=== PATIENT | female | born 1995 | race Caucasian/White ===

== ENCOUNTER → 2019-09-05 15:37 | Outpatient (BNVA) | payer BC, SELFPAY | PROVIDERS: PCP Nurse Practitioner Family; Visit Provider Nurse Practitioner Family | DX: Z23 Encounter for immunization (principal) | CPT/HCPCS: 81025 ==

== ENCOUNTER → 2022-09-10 09:58 | Outpatient (BNVA) | payer BC, SELFPAY | PROVIDERS: PCP Nurse Practitioner Family; Visit Provider Nurse Practitioner Family | DX: N93.9 Abnormal uterine and vaginal bleeding, unspecified (principal); N89.8 Other specified noninflammatory disorders of vagina | CPT/HCPCS: 84439; 84443; 84481; 85025; 87070; 87205; 88175 ==

== ENCOUNTER 2022-09-29 14:37 | Outpatient (CLI) | payer BC, SELFPAY ==
--- NOTE | 2022-09-29 15:15 | US_ITS ---
WS: [id number] TRANSABDOMINAL PELVIC AND TRANSVAGINAL PELVIC ULTRASOUND HISTORY: N93.9 - Abnormal uterine and vaginal bleeding, unspecified COMPARISON: None available. Uterus: 9.6 cm x 6.8 cm x 5.6 cm. Uterus is mildly enlarged and anteverted. Heterogeneous appearance to the myometrium and the junctional zone. Endometrium: 3.2 cm. Abnormal endometrium. There is mixed heterogeneity within the endometrium with l oss of the normal junctional zone. No shadowing which would typically be seen with fibroids. Right ovary: 4.0 cm x 1.9 cm x 2.2 cm. Normal size. No solid mass. No increased vascularity. As submu cosal fibroid. Left ovary: Not visualized. No adnexal mass. Free fluid: No free fluid. US/US pelv w/transvag [id number] IMPRESSION: 1. Technically difficult examination. 2. Enlarged uterus. 3. Abnormal endometrium. Endometrium is heterogeneous measuring 3.2 cm. Loss o f the normal junctional zone. Endometrial biopsy is recommended. Differential i ncludes endometrial neoplasm, adenomyosis and submucosal fibroid.
[2022-09-29 18:28] LABS: Iron 51 ug/dL (37-145); Total Iron Binding Capacity 362 mcg/dl; Unsaturated Iron Binding 311 ug/dL (112-347); Vitamin B12 285 pg/mL (232-1245)
== END 2022-09-29 14:38 | disposition home or self-care (01) ==
PROVIDERS: PCP Nurse Practitioner Family; Visit Provider Nurse Practitioner Family
DX: N93.9 Abnormal uterine and vaginal bleeding, unspecified (principal); D64.9 Anemia, unspecified
CPT/HCPCS: 36415; 76830; 76856; 82607; 83540; 83550

== ENCOUNTER → 2022-11-13 10:04 | Outpatient (BNVA) | payer BC, SELFPAY | PROVIDERS: PCP Nurse Practitioner Family; Visit Provider Nurse Practitioner Family | DX: J02.9 Acute pharyngitis, unspecified (principal) | CPT/HCPCS: 87880 ==

== ENCOUNTER → 2025-01-17 19:10 | Outpatient (BNVA) | payer BC, SELFPAY | PROVIDERS: PCP Nurse Practitioner Family; Visit Provider Registered Nurse Neonatal Intensive Care | DX: R50.9 Fever, unspecified (principal) | CPT/HCPCS: 87400; 87426 ==

== ENCOUNTER 2025-01-19 09:18 | Inpatient (IN) | payer BC, SELFPAY ==
[2025-01-19] VITALS (7 sets, daily range): BP systolic 129–164; BP diastolic 60–84; PULSE 98–112; RESP 17; TEMP 36.9–37.1; O2SAT 95–99; BMI 52.4; BMI 51.5
--- OUTSIDE RECORDS SUMMARY | 2025-01-19 09:28 | XMS_ITS | Encounter Summary ---
Author Organization [facility] Address [address] [place] [address] Care Team Providers Care Chancery Clerk Name Role Phone Carissa Jimenes MD Primary Care Provider [phone] Encounter Details Date Type Department Care Team (Latest Contact Info) Description 09/11/2004 Outpatient Historical [facility] Family Medicine- [address] [place] [address] Rosario Hirsch, BRITTNEY NO ADDRESS ON FILE STREP SORE THROAT (Primary Dx); OTITIS MEDIA NOS; MORBID OBESITY (CMS/HCC) Social History Tobacco Use Types Packs/Day Years Used Date Smoking Tobacco: Never Assessed Comments Unknown Sex and Gender Information Value Date Recorded Sex Assigned at Not on file 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
--- OUTSIDE RECORDS SUMMARY | 2025-01-19 09:28 | XMS_ITS | Clinical Summary ---
Author Organization [facility] Address [address] [place] [address] Care Team Providers Care Campaign Director Name Role Phone Carissa Jimenes MD Primary Care Provider Allergies No known active allergies Medications Blood-Glucose Meter (ONE TOUCH ULTRA 2) [facility] Kit Dx. 250.0 1 Kit 0 2 Active lancets (ONE TOUCH ULTRASOFT LANCETS) [facility] Each 2 2 Active Echinacea 200 mg Oral Cap Take 1 Tab by mouth daily. Active multivitamin (DAILY-ANA) Oral tablet Take 1 Tab by mouth daily. Active antipyrine-jennifer ocaine (AURODEX) 5.4-1.4 % OT Drop Administer 5 Drops in left ear every 4 hours. 10 mL 1 3 Active blood sugar diagnostic (CONTOUR NEXT STRIPS) Strip Use to test sugar one time daily DX:E11.9. 50 Strip 4 7 Active metFORMIN (GLUCOPHAGE) 1,000 mg tablet TAKE ONE TABLET BY MOUTH TWICE DAILY WITH MEALS 60 Tablet 3 7 Active nystatin-triamc inolone (MYCOLOG-II) 100,000-0.1 unit/g-% Cream Apply to affected area 2 times daily. 60 Gram 2 7 Active metFORMIN (GLUCOPHAGE) 500 mg tabletIndicatio ns:Diabetes mellitus due to underlying condition without complication, without long-term current use of insulin (CMS/HCC) TAKE ONE TABLET BY MOUTH ONCE DAILY WITH BREAKFAST 30 Tablet 3 7 Active Active Problems Problem Noted Date Diagnosed Date Childhood obesity 11/27/2008 DM (diabetes mellitus) 11/27/2008 Overview (09/03/2012): A1C: 8.2 (06/07); 12.5 (12/02) Immunizations Immunization Administration Dates Next Due (M-M-R II/PRIORIX)(12 MO UP) MEASLES, MUMPS AND RUBELLA VIRUS VACCINE, 0.5 ML IM/SUBCUT 01/16/1999,02/17/1995 Dt Dtp Dtap Vaccine 01/16/1999, 5,08/11/1994,1993,01/06/1994 HIB, Unspecified Formulation 02/17/1995, 08/11/1994,05/12/1994,1993 Hepatitis A Vaccine 02/18/2006 Hepatitis B Vaccine 02/17/1996,02/17/1995,1993 IPV/OPV 08/11/1994,05/12/1994,01/06/1994 Influenza Seasonal Unspecifi ed Formulation IM 04/26/2012,07/04/2003 Social History Tobacco Use Types Packs/Day Years Used Date Smoking Tobacco: Never Smokeless Tobacco: Never Alcohol Use Standard Drinks/Week Comments No 0 (1 standard drink = 0.6 oz pur e alcohol) Comments No Sex and Gender Information Value Date Recorded Sex Assigned at Not on file Legal Sex Female 5:50 AM RECONCILER Gender Identity Not on file Sexual Orientation Not on file Last Filed Vital Signs Vital Sign Reading Time Taken Comments Blood Pressure 130/89 11/12/2016 11:10 AM CDT Pulse 104 11/12/2016 11:10 AM CDT Temperature 36.9 C (98.5 F) 11/12/2016 11:10 AM CDT Respiratory Rate 20 11/12/2016 11:10 AM CDT Oxygen Saturation 98% 11/12/2016 11:10 AM CDT Inhaled Oxygen Concentration - - Weight 151.7 kg (334 lb 8 oz) 11/12/2016 11:10 A M CDT Height 168.9 cm (5' 6.5 ) 11/12/2016 11:10 AM CD T Body Mass Index 53.18 11/12/2016 11:10 AM CDT Plan of Treatment Health Maintenance Due Date Last Done Comments DTAP/TDAP/TD VACCINES (6 - Tdap) 2004 01/16/1999, 02/17/1995, 08/11/1994, Additional history exists DIABETES MICROALBUMIN ANNUAL SCREEN 02/15/2013 02/16/2012 DIABETES ANNUAL RETINAL EXAM 03/03/2017 03/03/2016, 09/18/2014 DIABETES HBA1C Q 6 MONTHS 05/08/20172016, 10/01/2012, 05/27/2012, Additional history exists HPV/Cotest (21-29) 10/19/2017 10/19/2012 LDL CHOLESTEROL ANNUAL 11/06/2017 7, 06/07/2015, 03/02/2010, Additional history exists DIABETES ANNUAL FOOT EXAM 11/12/2017 11/12/2016 CERVICAL CANCER SCREENING 10/29/2023 HPV/Cotest (30-65) 10/29/2023 10/19/2012 PAP SMEAR 10/29/2023 10/19/2012 INFLUENZA VACCINE (#1) 2024 04/26/2012, 2002 Preventative Visit- Commercial 07/27/2024 HEPATITIS B VACCINES Completed 02/17/1996, 02/17/1995, 1993 HPV VACCINES Aged Out No longer eligi ble based on patient's age to complete this topic Procedures Procedure Name Priority Date/Time Associated Diagnosis Comments LIPID PANEL Routine 11/06/2016 HM DIABETES EYE EXAM Routine 03/03/2016 CERV/VAG CYTOPATH, THIN PREP IMAGR RFLX HPV Routine 10/19/2012 9:06 AM CDT HEMOGLOBIN A1C Routine 10/01/2012 10:36 AM RECONCILER DM w/o Complication Type II, Uncontrolled, Dx'd 12/02 MICROALBUMIN/CREATI NINE RATIO, RANDOM UR Routine 02/16/2012 11:08 AM CDT DM w/o complication type II (CMS/HCC) from Last 3 Months or Most Recently Relevant to Health Maintenance Results * LIPID PANEL (11/06/2016) ABSTRACTED CHOLESTEROL 196 EXTERNAL LAB ABSTRACTED TRIGLYCERIDE 249 EXTERNAL LAB ABSTRACTED HDL 32 EXTERNAL LAB ABSTRACTED LDL CALCULATED 114 EXTERNAL LAB CHOLESTEROL <=200 mg/dL EXTERNAL LAB CHOLESTEROL EXTERNAL LAB TRIGLYCERIDE <=150 mg/dL EXTERNAL LAB TRIGLYCERIDE EXTERNAL LAB HDL 40 - 59 mg/dL EXTERNAL LAB HDL EXTERNAL LAB LDL CALCULATED <=100 mg/dL EXTERNAL LAB LDL CALCULATED EXTERNAL LAB CALCULATED LDL CHOLESTEROL mg/dL EXTERNAL LAB CALCULATED TOTAL CHOLESTEROL TO HDL RATIO EXTERNAL LAB CHOL/HDL RATIO EXTERNAL LAB VLDL-3 (REMNANT LIPO) mg/dL EXTERNAL LAB LIPID PANEL COMMENT EXTERNAL LAB RISK FACTOR EXTERNAL LAB RESULT COMMENT, CHEMISTRY EXTERNAL LAB Blood 11/06/2016 us Lara DARBY CHEMISTRY ORDERABLES Final Result EXTERNAL LAB * DIABETES EYE EXAM (03/03/2016) us Abstract Spg Provider HEALTH MAINTENANCE Final R esult * CERV/VAG CYTOPATH, THIN PREP IMAGR RFLX HPV (10/19/2012 9:06 AM CDT) HEALTH INFORMATION MANAGERS CYTOLOGY REPORT REFLEX HPV [facility] Anatomic Pathology Dept [address] [place] [phone] Patient: CONCEPCION RAY Accn No: [id number] , [id number] Collected: 10/19/2012 9:06:00 AM All cases except those with a DP prefix are performed by pathologists from [facility] at [facility]. Case type DP is performed by Dr. Maikel Duggan, [facility], [facility], [address], [address] [address] (CLIA #[id number]) (Ph. [phone]). HEALTH INFORMATION MANAGERS PAP - REFLEX HPV History Specimen Type: Endocervical LMP: 3 ABNORMAL BLEEDING Previous Pap History: FIRST Specimen Adequacy Satisfactory for interpretation. The smear lacks endocervical or metaplastic cells. Diagnosis NEGATIVE FOR INTRAEPITHELIAL LESION OR MALIGNANCY. (Previously noted as Within Normal Limits). Tool Die Maker/ EDR Pathologist: 04/01/13 Completed by: YOVANI GOMEZ BSCT (ASCP) (Electronically signed by) 10/25/12 Comment Routine follow-up is suggested. Important Information About Pap Smears The Pap smear is associated with a low but well-documented and probably irreducible false negative rate of up to 10%. Additionally, the false positive rate for a diagnosis of invasive carcinoma or HSIL has been estimated to be approximately 1-10%. Therefore, any visible lesion on the cervix should be biopsied regardless of Pap smear findings. HPV Testing off the Thin Prep vial can be done as a means of further evaluating a Thin Prep Report. For information about ordering the HPV test, phone Virology at . Treatment or follow-up recommendations (if any) that are contained within this report are based upon general recommendations as contained in 2001 Consensus Guidelines For Cervical Cytological Abnormalities MARYSE: November 17, 2001, and are provided as a general guideline rather than as a specific recommendation. Final decisions about the most appropriate treatment and follow-up should be made on an individualized basis by the treating physician in consultation with his/her patient. [facility] [employer] [facility] 10/19/2012 9:06 AM CDT Lara BERUMENP PATHOLOGY/CYTOLOGY ORDERABL ES Edited Performing Organization Address City/[facility] de Phone Number INTERFACE SYSTEM Refer to clinic/hospital department [facility] CLIA# [id number] [address] [place] [address] * (ABNORMAL) HEMOGLOBIN A1C (10/01/2012 10:36 AM RECONCILER) HEMOGLOBIN A1C 8.9(H) 4.5 - 6.2 % 10/01/2012 10:57 AM RECONCILER [facility] [employer] [facility] EST. AVG GLUCOSE, A1C 209 mg/dL 10/01/2012 10:57 AM RECONCILER [facility] [employer] [facility] Blood specimen (specimen) 10/01/2012 10:36 AM RECONCILER 10/01/2012 10:36 AM RECONCILER Lara BERUMENP CHEMISTRY ORDERABLES Final Result Performing Organization Address City/State/[facility] Co de Phone Number [facility] [employer] [facility] CLIA # [id number] [address] [place], [place] [id number] * MICROALBUMIN/CREATININE RATIO, RANDOM UR (02/16/2012 11:08 AM CDT) CREATININE, URINE 30 mg/dL 02/16/2012 11:21 AM CDT [facility] MICROALBUMIN/C REAT RATIO, UR 200.0 mg/g Creatinine 02/16/2012 11:21 AM CDT [facility] MICROALBUMIN, URINE 6.0 mg/dL 02/16/2012 11:21 AM CDT [facility] [employer] [facility] Urine specimen (specimen) 02/16/2012 11:08 AM CDT 02/16/2012 11:08 AM CDT Lara Colin MATERIALS TECHNICIAN URINE ORDERABLES Final Resu lt Performing Organization Address City/[facility] Co de Phone Number [facility] [employer] [facility] CLIA # [id number] [address] [place] [address] from Last 3 Months or Most Recently Relevant to Health Maintenance Insurance Care Teams Campaign Director Relationship Specialty Start Date End Date Carissa Jimenes MD [address] [facility] [address] [place] [address] PCP - General Family Practice 08/09/13
--- OUTSIDE RECORDS SUMMARY | 2025-01-19 09:28 | XMS_ITS | Encounter Summary ---
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
--- OUTSIDE RECORDS SUMMARY | 2025-01-19 09:28 | XMS_ITS | Encounter Summary ---
Author Organization [facility] Address [address] [place] [address] Care Team Providers Care Shipyard Helper Name Role Phone Carissa Jimenes MD Primary Care Provider Encounter Details Date Type Department Care Team (Latest Contact Info) Description 04/05/2003 Outpatient Historical [facility] Medicine [place] [address] [address] Kj Warren, NO ADDRESS ON FILE FX OLECRAN PROC ULNA-CLOSE (Primary Dx); ENURESIS Social History Tobacco Use Types Packs/Day Years Used Date Smoking Tobacco: Never Assessed Comments Unknown Sex and Gender Information Value Date Recorded Sex Assigned at Not on file Legal Sex Female 5:50 AM MANAGER DATABASE Gender Identity Not on file Sexual Orientation Not on file documented as of this encounter Plan of Treatment Not on file documented as of this encounter Visit Diagnoses Diagnosis Closed fracture of olecranon process of ulna- Primary Nonorganic enuresis documented in this encounter Care Teams Shipyard Helper Relationship Specialty Start Date End Date Carissa Jimenes MD [address] [address] PCP - General Family Practice 08/09/13 documented as of this encounter
--- OUTSIDE RECORDS SUMMARY | 2025-01-19 09:28 | XMS_ITS | Encounter Summary ---
Author Organization [facility] Address [address] [place] [address] Care Team Providers Care C Wpf Developer Name Role Phone Carissa Jimenes MD Primary Care Provider [phone] Encounter Details Date Type Department Care Team (Latest Contact Info) Description 07/04/2003 Outpatient Historical [facility] Medicine [place] [address] [address] Kj Warren DO NO ADDRESS ON FILE Vaccine for influenza (Primary Dx) Social History Tobacco Use Types Packs/Day Years Used Date Smoking Tobacco: Never Assessed Comments Unknown Sex and Gender Information Value Date Recorded Sex Assigned at Not on file Legal Sex Female 5:50 AM MEDICAL ESTHETICIAN Gender Identity Not on file Sexual Orientation Not on file documented as of this encounter Plan of Treatment Not on file documented as of this encounter Visit Diagnoses Diagnosis Vaccine for influenza- Primary Need for prophylactic vaccination and inoculation against influenza documented in this encounter Care Teams C Wpf Developer Relationship Specialty Start Date End Date Carissa Jimenes MD [address] [address] PCP - General Family Practice 08/09/13 documented as of this encounter
--- OUTSIDE RECORDS SUMMARY | 2025-01-19 09:28 | XMS_ITS | Encounter Summary ---
Author Organization [facility] Address [address] [place] [address] Care Team Providers Care Special Officer Automat Name Role Phone Carissa Jimenes MD Primary Care Provider Encounter Details Date Type Department Care Team (Latest Contact Info) Description 03/10/[address] 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
--- OUTSIDE RECORDS SUMMARY | 2025-01-19 09:28 | XMS_ITS | Encounter Summary ---
Author Organization [facility] Address [address] [place] [address] Care Team Providers Care Warehouse Shipping Receiving Clerk Name Role Phone Carissa Jimenes MD Primary Care Provider Encounter Details Date Type Department Care Team (Latest Contact Info) Description 06/08/2003 Outpatient Historical [facility] Medicine [place] [address] [address] Swathi Sanchez MD NO ADDRESS ON FILE Dysfunct eustachian tube (Primary Dx); OTITIS MEDIA NOS; VIRAL EXANTHEMATA NOS Social History Tobacco Use Types Packs/Day Years Used Date Smoking Tobacco: Never Assessed Comments Unknown Sex and Gender Information Value Date Recorded Sex Assigned at Not on file 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
--- OUTSIDE RECORDS SUMMARY | 2025-01-19 09:28 | XMS_ITS | Encounter Summary ---
Author Organization [facility] Address [address] 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
--- OUTSIDE RECORDS SUMMARY | 2025-01-19 09:28 | XMS_ITS | Encounter Summary ---
Author Organization [facility] Address [address] [place] [address] Care Team Providers Care Extract Operator Name Role Phone Carissa Jimenes MD Primary Care Provider Encounter Details Date Type Department Care Team (Latest Contact Info) Description 06/28/2003 Outpatient Historical [facility] Medicine [place] [address] [address] Lonny Saba MD [address] [facility] [address] [place] [phone] DERMATITIS NOS (Primary Dx) Social History Tobacco Use Types Packs/Day Years Used Date Smoking Tobacco: Never Assessed Comments Unknown Sex and Gender Information Value Date Recorded Sex Assigned at Not on file Legal Sex Female 5:50 AM BEESWAX BLEACHER Gender Identity Not on file Sexual Orientation Not on file documented as of this encounter Plan of Treatment Not on file documented as of this encounter Visit Diagnoses Diagnosis Contact dermatitis and other eczema, due to unspecified cause- Primary documented in this encounter Care Teams Extract Operator Relationship Specialty Start Date End Date Carissa Jimenes MD [address] [address] PCP - General Family Practice 08/09/13 documented as of this encounter
--- OUTSIDE RECORDS SUMMARY | 2025-01-19 09:28 | XMS_ITS | Encounter Summary ---
Author Organization [facility] Address [address] [place] [address] Care Team Providers Care Planting Material Unloader Name Role Phone Carissa Jimenes MD Primary Care Provider Encounter Details Date Type Department Care Team (Late st Contact Info) Description 09/30/2004 Outpatient Historical [facility] Rosario Hirsch, BRITTNEY NO ADDRESS ON FILE Social History Tobacco Use Types Packs/Day Years Used Date Smoking Tobacco: Never Assessed Comments Unknown Sex and Gender Information Value Date Recorded Sex Assigned at Not on file Legal Sex Female 5:50 AM SHOES SALESPERSON Gender Identity Not on file Sexual Orientation Not on file documented as of this encounter Plan of Treatment Not on file documented as of this encounter Visit Diagnoses Not on filedocumented in this encounter Care Teams Planting Material Unloader Relationship Specialty Start Date End Date Carissa Jimenes MD [address] [facility] [address] [place] [address] PCP - General Family Practice 08/09/13 documented as of this encounter
--- OUTSIDE RECORDS SUMMARY | 2025-01-19 09:28 | XMS_ITS | Encounter Summary ---
Author Organization [facility] Address [address] 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
--- OUTSIDE RECORDS SUMMARY | 2025-01-19 09:28 | XMS_ITS | Encounter Summary ---
Author Organization [facility] Address [address] [place] [address] Care Team Providers Care Blanket Winder Operator Name Role Phone Carissa Jimenes MD Primary Care Provider Encounter Details Date Type Department Care Team (Late st Contact Info) Description 03/25/2001 Outpatient Historical [facility] Tammy Hardin MD [address] [place] [address] Acq acanthosis nigricans (Primary Dx) Social History Tobacco Use Types Packs/Day Years Used Date Smoking Tobacco: Never Assessed Comments Unknown Sex and Gender Information Value Date Recorded Sex Assigned at Not on file Legal Sex Female 5:50 AM CLASSIFIED COPY CONTROL CLERK Gender Identity Not on file Sexual Orientation Not on file documented as of this encounter Plan of Treatment Not on file documented as of this encounter Visit Diagnoses Diagnosis Acq acanthosis nigricans- Primary Acquired acanthosis nigricans documented in this encounter Care Teams Blanket Winder Operator Relationship Specialty Start Date End Date Carissa Jimenes MD [address] [facility] [address] [place] [address] PCP - General Family Practice 08/09/13 documented as of this encounter
--- OUTSIDE RECORDS SUMMARY | 2025-01-19 09:28 | XMS_ITS | Encounter Summary ---
Author Organization [facility] Address [address] [place] [address] Care Team Providers Care Filler Sifter Machine Name Role Phone Carissa Jimenes MD Primary Care Provider [phone] Encounter Details Date Type Department Care Team (Latest Contact Info) Description 09/20/[address] 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
--- OUTSIDE RECORDS SUMMARY | 2025-01-19 09:28 | XMS_ITS | Encounter Summary ---
Author Organization [facility] Address [address] [place] [address] Care Team Providers Care Office Rental Clerk Name Role Phone Carissa Jiemnes MD Primary Care Provider Encounter Details Date Type Department Care Team (Latest Contact Info) Description 09/08/2003 Outpatient Historical [facility] Family Medicine- [employer] [address] [place] [address] Swathi Sanchez MD NO ADDRESS ON FILE STREP SORE THROAT (Primary Dx) Social History Tobacco Use Types Packs/Day Years Used Date Smoking Tobacco: Never Assessed Comments Unknown Sex and Gender Information Value Date Recorded Sex Assigned at Not on file 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
--- OUTSIDE RECORDS SUMMARY | 2025-01-19 09:28 | XMS_ITS | Encounter Summary ---
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
--- OUTSIDE RECORDS SUMMARY | 2025-01-19 09:28 | XMS_ITS | Encounter Summary ---
Author Organization [facility] Address [address] [place] [address] Care Team Providers Care Life Agent Name Role Phone Carissa Jimenes MD Primary Care Provider Encounter Details Date Type Department Care Team (Latest Contact Info) Description 09/27/2004 Outpatient Historical [facility] [place] [address] [address] Rosario Hirsch NP NO ADDRESS ON FILE ACUTE SINUSITIS NOS (Primary Dx); Dysfunct eustachian tube; STREP SORE THROAT; FINGER INJURY NOS Social History Tobacco Use Types Packs/Day Years Used Date Smoking Tobacco: Never Assessed Comments Unknown Sex and Gender Information Value Date Recorded Sex Assigned at Not on file 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
--- OUTSIDE RECORDS SUMMARY | 2025-01-19 09:28 | XMS_ITS | Encounter Summary ---
Author Organization [facility] Address [address] 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
--- OUTSIDE RECORDS SUMMARY | 2025-01-19 09:28 | XMS_ITS | Encounter Summary ---
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
--- OUTSIDE RECORDS SUMMARY | 2025-01-19 09:28 | XMS_ITS | Encounter Summary ---
Author Organization [facility] Address [address] [place] [address] Care Team Providers Care Milking Machine Operator Name Role Phone Carissa Jimenes MD Primary Care Provider [phone] Encounter Details Date Type Department Care Team (Latest Contact Info) Description 03/10/2001 Outpatient Historical 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
--- OUTSIDE RECORDS SUMMARY | 2025-01-19 09:28 | XMS_ITS | Encounter Summary ---
Author Organization [facility] Address [address] 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
--- OUTSIDE RECORDS SUMMARY | 2025-01-19 09:28 | XMS_ITS | Encounter Summary ---
Author Organization [facility] Address [address] [place] [address] Care Team Providers Care Professor Of Geography Name Role Phone Carissa Jimenes MD Primary Care Provider Encounter Details Date Type Department Care Team (Latest Contact Info) Description 09/22/2003 Outpatient Historical [facility] Medicine [place] [address] [address] Kj Warren, NO ADDRESS ON FILE TOXIC ERYTHEMA (Primary Dx); DERMATITIS NOS; STREP SORE THROAT Social History Tobacco Use Types Packs/Day Years Used Date Smoking Tobacco: Never Assessed Comments Unknown Sex and Gender Information Value Date Recorded Sex Assigned at Not on file 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
--- OUTSIDE RECORDS SUMMARY | 2025-01-19 09:28 | XMS_ITS | Encounter Summary ---
Author Organization [facility] Address [address] [place] [address] Care Team Providers Care X Ray Equipment Tester Name Role Phone Carissa Jimenes MD Primary Care Provider Encounter Details Date Type Department Care Team (Latest Contact Info) Description 09/06/1998 Outpatient Historical [facility] Amy TYSON, Kenn Victoria MD NO ADDRESS ON FILE Laxity of ligament (Primary Dx); Flat foot(734) Social History Tobacco Use Types Packs/Day Years Used Date Smoking Tobacco: Never Assessed Comments Unknown Sex and Gender Information Value Date Recorded Sex Assigned at Not on file 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
--- OUTSIDE RECORDS SUMMARY | 2025-01-19 09:28 | XMS_ITS | Encounter Summary ---
Author Organization [facility] Address [address] [place] [address] Care Team Providers Care Kiln Tender Name Role Phone Carissa Jimenes MD Primary Care Provider Encounter Details Date Type Department Care Team (Latest Contact Info) Description 10/21/2000 Outpatient Historical [facility] Goodman TYSON, Lenny Victoria MD [address] [address] Congenital pes planus (Primary Dx) Social History Tobacco Use Types Packs/Day Years Used Date Smoking Tobacco: Never Assessed Comments Unknown Sex and Gender Information Value Date Recorded Sex Assigned at Not on file Legal Sex Female 5:50 AM NUTRITION SERVICES ASSISTANT Gender Identity Not on file Sexual Orientation Not on file documented as of this encounter Plan of Treatment Not on file documented as of this encounter Visit Diagnoses Diagnosis Congenital pes planus- Primary documented in this encounter Care Teams Kiln Tender Relationship Specialty Start Date End Date Carissa Jimenes MD [address] [facility] [address] [place] [address] PCP - General Family Practice 08/09/13 documented as of this encounter
--- OUTSIDE RECORDS SUMMARY | 2025-01-19 09:28 | XMS_ITS | Encounter Summary ---
Author Organization 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
--- OUTSIDE RECORDS SUMMARY | 2025-01-19 09:28 | XMS_ITS | Encounter Summary ---
Author Organization [facility] Address [address] [place] [address] Care Team Providers Care Clam Digger Name Role Phone Carissa Jimenes MD Primary Care Provider [phone] Encounter Details Date Type Department Care Team (Latest Contact Info) Description 05/29/2003 Outpatient Historical [facility] Medicine [place] [address] [address] Lonny Saba MD [address] [phone] OTITIS MEDIA NOS (Primary Dx); ACUTE TONSILLITIS; MORBID OBESITY (CMS/HCC) Social History Tobacco Use Types Packs/Day Years Used Date Smoking Tobacco: Never Assessed Comments Unknown Sex and Gender Information Value Date Recorded Sex Assigned at Not on file 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
--- OUTSIDE RECORDS SUMMARY | 2025-01-19 09:29 | XMS_ITS | Encounter Summary ---
Author Organization [facility] Address [address] [place] [address] Care Team Providers Care Terrapin Fisher Name Role Phone Carissa Jimenes MD Primary Care Provider [phone] Encounter Details Date Type Department Care Team (Latest Contact Info) Description 08/14/2006 Outpatient Historical [facility] Medicine [place] [address] [address] Rosario Hirsch NP NO ADDRESS ON FILE Contact Dermatitis and Other Eczema, due to Unspecified Cause (Primary Dx) Social History Tobacco Use Types Packs/Day Years Used Date Smoking Tobacco: Never Assessed Comments Unknown Sex and Gender Information Value Date Recorded Sex Assigned at Not on file Legal Sex Female 5:50 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
--- OUTSIDE RECORDS SUMMARY | 2025-01-19 09:29 | XMS_ITS | Encounter Summary ---
Author Organization [facility] Address [address] [place] [address] Care Team Providers Care Center Lead Consultant Name Role Phone Carissa Jimenes MD Primary Care Provider Encounter Details Date Type Department Care Team (Latest Contact Info) Description 07/31/2006 Outpatient Historical [facility] Medicine [place] [address] [address] Lonny Serna MD NO ADDRESS ON FILE Morbid Obesity (CMS/HCC) (Primary Dx); Cellulitis and Abscess of Upper Arm and Forearm Social History Tobacco Use Types Packs/Day Years Used Date Smoking Tobacco: Never Assessed Comments Unknown Sex and Gender Information Value Date Recorded Sex Assigned at Not on file Legal Sex Female 5:50 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
--- OUTSIDE RECORDS SUMMARY | 2025-01-19 09:29 | XMS_ITS | Encounter Summary ---
Author Organization [facility] Address [address] [place] [address] Care Team Providers Care Gsa Coordinator Name Role Phone Carissa Jimenes MD Primary Care Provider Encounter Details Date Type Department Care Team (Latest Contact Info) Description 06/02/2006 Outpatient Historical [facility] Medicine [place] [address] [address] Kj Warren DO NO ADDRESS ON FILE Pneumonia, Organism Unspecified (Primary Dx) Social History Tobacco Use Types Packs/Day Years Used Date Smoking Tobacco: Never Assessed Comments Unknown Sex and Gender Information Value Date Recorded Sex Assigned at Not on file 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
--- OUTSIDE RECORDS SUMMARY | 2025-01-19 09:29 | XMS_ITS | Encounter Summary ---
Author Organization [facility] Address [address] [place] [address] Care Team Providers Care Marine Superintendent Name Role Phone Carissa Jimenes MD Primary Care Provider Encounter Details Date Type Department Care Team (Latest Contact Info) Description 05/13/[address] 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
--- OUTSIDE RECORDS SUMMARY | 2025-01-19 09:29 | XMS_ITS | Clinical Summary ---
Author Organization [facility] Address [address] [place]: [place] [address] Care Team Providers Care Document Management Consultant Name Role Phone Carissa Jimenes MD Primary Care Provider Allergies No known active allergies Medications metFORMIN (GLUCOPHAGE) 1,000 mg tablet TAKE ONE TABLET BY MOUTH TWICE DAILY WITH MEALS 60 Tablet 3 7 Active blood sugar diagnostic Strip Use to test sugar one time daily DX:E11.9. 50 Strip 4 7 Active FeroSuL 325 mg (65 mg iron) tablet Take 325 mg by mouth daily. 3 Active omega-3 fatty acids-fish oil 300-1,000 mg Capsule Take 1 Capsule by mouth daily. Active ibuprofen (MOTRIN) 800 mg tablet Take 1 Tablet (800 mg) by mouth every 6 hours as needed for Pain, Mild. 30 Tablet 1 01/26/2023 4:27 PM CDT 3 Active oxyCODONE (ROXICODONE) 5 mg tabletIndications :Abnormal uterine bleeding (AUB),Status post hysteroscopy Take 1 Tablet (5 mg) by mouth every 4 hours as needed for Pain. Max Daily Amount: 30 mg 15 Tablet 01/26/2023 4:27 PM CDT 3 Active medroxyPROGESTERo ne (Provera) 10 mg tabletIndications :Complex endometrial hyperplasia without atypia Take 1 Tablet (10 mg) by mouth daily. 90 Tablet 3 4 Active Active Problems Problem Noted Date Diagnosed Date Endometrial hyperplasia without atypia, complex 03/06/2023 DM (diabetes mellitus) 11/27/2008 Overview (11/22/2020): A1C: 8.2 (06/07); 12.5 (12/02) Morbid obesity with BMI of 50.0-59.9, adult 10/2008 Immunizations Immunization Administration Dates Next Due (M-M-R II/PRIORIX)(12 MO UP) MEASLES, MUMPS AND RUBELLA VIRUS VACCINE, 0.5 ML IM/SUBCUT 01/16/1999,02/17/1995 Dt Dtp Dtap Vaccine 01/16/1999, 5,08/11/1994,1993,01/06/1994 HIB, Unspecified Formulation 02/17/1995, 08/11/1994,05/12/1994,1993 Hepatitis A Vaccine 02/18/2006 Hepatitis B Vaccine 02/17/1996,02/17/1995,1993 IPV/OPV 08/11/1994,05/12/1994,01/06/1994 Influenza Seasonal Unspecifi ed Formulation IM 04/26/2012,07/04/2003 Social History Tobacco Use Types Packs/Day Years Used Date Smoking Tobacco: Never Smokeless Tobacco: Never Tobacco Cessation:Counseling Given: Not Answered Alcohol Use Standard Drinks/Week Comments No 0 (1 standard drink = 0.6 oz pur e alcohol) Feeling Safe Answer Date Recorded Are you in a relationship wi th someone who hurts you emotionally and/or physically? No 01/26/2023 Food Insecurity Answer Date Recorded Patient needs follow up regarding: Not on file 09/30/2023 Transportation Needs Answer Date Record ed Patient needs follow up regarding: Not on file 09/30/2023 Housing Stability Answer Date Recorded Patient needs follow up regarding: Not on file 09/30/2023 Utility Needs Answer Date Recorded Patient needs follow up regarding: Not on file 09/30/2023 Comments No Sex and Gender Information Value Date Recorded Sex Assigned at Not on file Legal Sex Female 12:39 AM BUDGET DIRECTOR Gender Identity Not on file Sexual Orientation Not on file Last Filed Vital Signs Vital Sign Reading Time Taken Comments Blood Pressure 138/76 10/07/2023 1:41 PM CDT Pulse 92 01/26/2023 3:40 PM CDT Temperature 36.4 C (97.5 F) 01/26/2023 3:10 PM CDT Respiratory Rate 18 01/26/2023 3:40 PM CDT Oxygen Saturation 97% 01/26/2023 3:40 PM CDT Inhaled Oxygen Concentration - - Weight 146.5 kg (323 lb) 10/07/2023 1:41 PM CDT Height 170.2 cm (5' 7 ) 10/07/2023 1:41 PM CDT Body Mass Index 50.59 10/07/2023 1:41 PM CDT Plan of Treatment Health Maintenance Due Date Last Done Comments DTAP/TDAP/TD VACCINES (6 - Tdap) 2004 01/16/1999, 02/17/1995, 08/11/1994, Additional history exists DIABETES MICROALBUMIN ANNUAL SCREEN 10/29/2011 HPV/Cotest (21-29) 2014 DIABETES ANNUAL RETINAL EXAM 03/03/2017 03/03/2016, 03/03/2016, 09/18/2014 DIABETES HBA1C Q 6 MONTHS 05/08/2017 11/06/2016, 02/2013 LDL CHOLESTEROL ANNUAL 11/06/2017 11/06/2016, 2014 DIABETES ANNUAL FOOT EXAM 11/12/2017 11/12/2016 HPV/Cotest (30-65) 10/29/2023 INFLUENZA VACCINE (#1) 2024 04/26/2012, 2002 Preventative Visit- Commercial 07/27/2024 CERVICAL CANCER SCREENING 10/06/2026 PAP SMEAR 10/06/2026 10/07/2023 HEPATITIS B VACCINES Completed 02/17/1996, 02/17/1995, 1993 HPV VACCINES Aged Out No longer eligi ble based on patient's age to complete this topic Procedures Procedure Name Priority Date/Time Associated Diagnosis Comments CERV/VAG CYTO AGE BASED SCREEN PAP Routine 10/07/2023 5:00 PM CDT Screening for cervical cancer LIPID PANEL Routine 11/06/2016 HM DIABETES EYE EXAM 03/03/2016 12:00 AM CDT from Last 3 Months or Most Recently Relevant to Health Maintenance Results * CERV/VAG CYTO AGE BASED SCREEN PAP (10/07/2023 5:00 PM CDT) COMMENT (PAP): Apoorva Michael Comment: This order for age-based cervical cancer and STI screening follows ACOG guidelines(PB 168, 140, ZSN214). See individual assays for performing site location. CLINICAL INFORMATION Apoorva Michael Comment:None given LAST MENSTRUAL PERIOD Apoorva Michael Comment:09/23/2023 PREV PAP: Apoorva Michael Comment:NONE GIVEN PREV BX: Apoorva Michael Comment:NONE GIVEN SOURCE Apoorva Michael Comment:Endocervix ADEQUACY: Apoorva Michael Comment: Satisfactory for evaluation. Endocervical/transformation zone component present. PAP INTERP Apoorva Michael Comment: Cytology Results: Negative for intraepithelial lesion or malignancy. COMMENT (PAP TEST) Q uflores Michael Comment: This Pap test has been evaluated with computer assisted technology. MINE ENGINEERING MANAGER: Brandon Michael Comment: KMS, CT(ASCP) CT Screening location: [place] [address] [address] [place] [address] REVIEW MINE ENGINEERING MANAGER: Apoorva Michael Comment: ALAN, CT(ASCP) CT screening location: [place] [address] [address] [place] [address] [address] Que [address] Joi Michael Comment: EXPLANATORY NOTE: The Pap is a screening test for cervical cancer. It is not a diagnostic test and is subject to false negative and false positive results. It is most reliable when a satisfactory sample, regularly obtained, is submitted with relevant clinical findings and history, and when the Pap result is evaluated along with historic and current clinical information. FASTING: UNKNOWN Test Performed at: [place] [address] [address] [place] [address] Clemente Blanc Vo Genital SWAB OF ENDOCERVIX / Unknown 10/07/2023 5:00 PM CDT 10/08/2023 10:09 AM CDT Lupe Dixon MD PATHOLOGY/CYTOLOGY O RDERABLES Final Result [facility] [phone] [facility] [address] [address] [place] [address] * LIPID PANEL (11/06/2016) ABSTRACTED CHOLESTEROL 196 EXTERNAL LAB ABSTRACTED TRIGLYCERIDE 249 EXTERNAL LAB ABSTRACTED HDL 32 EXTERNAL LAB ABSTRACTED LDL CALCULATED 114 EXTERNAL LAB CHOLESTEROL EXTERNAL LAB CHOLESTEROL EXTERNAL LAB TRIGLYCERIDE EXTERNAL LAB TRIGLYCERIDE EXTERNAL LAB HDL EXTERNAL LAB HDL EXTERNAL LAB LDL CALCULATED EXTERNAL LAB LDL CALCULATED EXTERNAL LAB CALCULATED LDL CHOLESTEROL EXTERNAL LAB CALCULATED TOTAL CHOLESTEROL TO HDL RATIO EXTERNAL LAB CHOL/HDL RATIO EXTERNAL LAB VLDL-3 (REMNANT LIPO) EXTERNAL LAB LIPID PANEL COMMENT EXTERNAL LAB RISK FACTOR EXTERNAL LAB RESULT COMMENT, CHEMISTRY EXTERNAL LAB Blood 11/06/2016 Narrative EXTERNAL LAB - 11/06/2016 12:00 AM CDT This order was created through External Result Entry Lara BERUMENP CHEMISTRY ORDERABLES Final Result EXTERNAL LAB * DIABETES EYE EXAM (03/03/2016 12:00 AM CDT) Sgf Scanning HEALTH MAINTENANCE Final Result from Last 3 Months or Most Recently Relevant to Health Maintenance Insurance [facility] [employer] Care Teams Document Management Consultant Relationship Specialty Start Date End Date Carissa Jimenes MD [address] [address] PCP - General Family Practice 08/09/13
--- OUTSIDE RECORDS SUMMARY | 2025-01-19 09:29 | XMS_ITS | Encounter Summary ---
Author Organization [facility] Address [address] [place] [address] Care Team Providers Care Sports Medicine Coordinator Name Role Phone Carissa Jimenes MD Primary Care Provider Encounter Details Date Type Department Care Team (Late st Contact Info) Description 09/21/2007 Outpatient Historical [facility] Medicine [address] [phone] Lara Colin, MEHNAZ [address] [place] [phone] Social History Tobacco Use Types Packs/Day Years Used Date Smoking Tobacco: Never Assessed Comments Unknown Sex and Gender Information Value Date Recorded Sex Assigned at Not on file Legal Sex Female 5:50 AM SENIOR GRAPHIC DESIGNER Gender Identity Not on file Sexual Orientation Not on file documented as of this encounter Progress Notes * Lara Colin FNP - 09/21/2007 12:00 AM CST Patient Name: Cally Ray DOS: 09/21/2007 : 1995 VITALS: Weight: 0.0 pounds. Unable to weigh. Pulse: 0. Not dictated. BP: 142/66. Temperature 96. CHIEF COMPLAINT: Headache, cough, chest tightness for the last 2 days, started about a week ago andhas been using ibuprofen without a lot of relief. PHYSICAL EXAMINATION: GENERAL: A 11-year-old white female. The child is obese. SKIN: Warm and dry. Color pink. HEENT: Ears: TMs are dull bilaterally. Nose: Yellow mucoid drainage noted in the nasal passages. Throat: Positive erythema of the posterior pharynx. NECK: Supple. LUNGS: Clear. HEART: S1-S2 clear. Regular rate and rhythm. No murmur noted. ABDOMEN: Soft and round. Bowel sounds are present x4 quadrants. No tenderness and no organomegaly is noted. ASSESSMENT: Upper respiratory infection. PLAN: The patient was provided teaching on upper respiratory. She will increase fluids. She was given Zithromax 250 2 now and 1 for the next 4 days. Tussi- Organidin DM 2 teaspoons every 4-6 hours as needed for cough and congestion. Instructed on the medicine. Verbalizes understanding of how to use the medication. Return if symptoms do not resolve. CHASITY Felton D.O. [facility] Electronically Signed by CHASITY Felton 09/28/2007 13:00 , david Terrell Document #: [id number] cc: OR GRAPHIC DESIGNER documented in this encounter Plan of Treatment Not on file documented as of this encounter Visit Diagnoses Not on filedocumented in this encounter Care Teams Sports Medicine Coordinator Relationship Specialty Start Date End Date Carissa Jimenes MD [address] [phone] PCP - General Family Practice 08/09/13 documented as of this encounter
--- OUTSIDE RECORDS SUMMARY | 2025-01-19 09:29 | XMS_ITS | Encounter Summary ---
Author Organization [facility] Address [address] [place] [address] Care Team Providers Care Human Resources Advisor Name Role Phone Carissa Jimenes MD Primary Care Provider Encounter Details Date Type Department Care Team (Latest Contact Info) Description 06/24/2006 Outpatient Historical [facility] Family Medicine- [facility] [place] [address] [address] Rosario Hirsch NP NO ADDRESS ON FILE Other and Unspecified Noninfectious Gastroenteritis and Colitis (Primary Dx); Cough; Morbid Obesity (CMS/HCC); Hirsutism Social History Tobacco Use Types Packs/Day Years Used Date Smoking Tobacco: Never Assessed Comments Unknown Sex and Gender Information Value Date Recorded Sex Assigned at Not on file Legal Sex Female 5:50 AM PIECE MARKER SMALL ARMS Gender Identity Not on file Sexual Orientation Not on file documented as of this encounter Plan of Treatment Not on file documented as of this encounter Visit Diagnoses Diagnosis Other and unspecified noninfectious gastroenteritis and colitis(558.9)- Primary Other and unspecified noninfectious gastroenteritis and colitis Cough Morbid obesity (CMS/HCC) Morbid obesity Hirsutism documented in this encounter Care Teams Human Resources Advisor Relationship Specialty Start Date End Date Carissa Jimenes MD [address] [facility] [address] [place] [phone] PCP - General Family Practice 08/09/13 documented as of this encounter
--- OUTSIDE RECORDS SUMMARY | 2025-01-19 09:29 | XMS_ITS | Encounter Summary ---
Author Organization [facility] Address [address] [place] [address] Care Team Providers Care Collet Making Machine Operator Name Role Phone Carissa Jimenes MD Primary Care Provider Encounter Details Date Type Department Care Team (Latest Contact Info) Description 06/09/2006 Outpatient Historical [facility] [place] [address] [phone] Kj Warren, NO ADDRESS ON FILE Pneumonia, Organism Unspecified (Primary Dx); Obesity, Unspecified Social History Tobacco Use Types Packs/Day Years Used Date Smoking Tobacco: Never Assessed Comments Unknown Sex and Gender Information Value Date Recorded Sex Assigned at Not on file Legal Sex Female 5:50 AM BIRD RAISER Gender Identity Not on file Sexual Orientation Not on file documented as of this encounter Plan of Treatment Not on file documented as of this encounter Visit Diagnoses Diagnosis Pneumonia, organism unspecified(486)- Primary Pneumonia, organism unspecified Obesity, unspecified documented in this encounter Care Teams Collet Making Machine Operator Relationship Specialty Start Date End Date Carissa Jimenes MD [address] [phone] PCP - General Family Practice 08/09/13 documented as of this encounter
--- OUTSIDE RECORDS SUMMARY | 2025-01-19 09:29 | XMS_ITS | Encounter Summary ---
Author Organization [facility] Address [address] [place] [address] Care Team Providers Care Wire Saw Operator Name Role Phone Carissa Jimenes MD Primary Care Provider Encounter Details Date Type Department Care Team (Latest Contact Info) Description 03/05/2007 Outpatient Historical [facility] Medicine [address] [phone] Rosario Hirsch NP NO ADDRESS ON FILE Unspecified Infective Otitis Externa (Primary Dx); Acute Sinusitis, Unspecified; Viral Warts, Unspecified; Other Conjunctivitis Social History Tobacco Use Types Packs/Day Years Used Date Smoking Tobacco: Never Assessed Comments Unknown Sex and Gender Information Value Date Recorded Sex Assigned at Not on file Legal Sex Female 5:50 AM PIANO PLAYER Gender Identity Not on file Sexual Orientation Not on file documented as of this encounter Plan of Treatment Not on file documented as of this encounter Visit Diagnoses Diagnosis Infective otitis externa, unspecified- Primary Acute sinusitis, unspecified Viral warts, unspecified Other conjunctivitis documented in this encounter Care Teams Wire Saw Operator Relationship Specialty Start Date End Date Carissa Jimenes MD [address] [phone] PCP - General Family Practice 08/09/13 documented as of this encounter
--- OUTSIDE RECORDS SUMMARY | 2025-01-19 09:29 | XMS_ITS | Encounter Summary ---
Author Organization [facility] Address [address] [place] [address] Care Team Providers Care Coding Clerks Supervisor Name Role Phone Carissa Jimenes MD Primary Care Provider Encounter Details Date Type Department Care Team (Latest Contact Info) Description 08/19/2006 Outpatient Historical [facility] Medicine [place] [address] [phone] Kj Warren DO NO ADDRESS ON FILE Acute Pharyngitis (Primary Dx); Acute Gastritis Social History Tobacco Use Types Packs/Day Years Used Date Smoking Tobacco: Never Assessed Comments Unknown Sex and Gender Information Value Date Recorded Sex Assigned at Not on file Legal Sex Female 5:50 AM REVIEW CONSULTANT Gender Identity Not on file Sexual Orientation Not on file documented as of this encounter Plan of Treatment Not on file documented as of this encounter Visit Diagnoses Diagnosis Acute pharyngitis- Primary Acute gastritis Acute gastritis without mention of hemorrhage documented in this encounter Care Teams Coding Clerks Supervisor Relationship Specialty Start Date End Date Carissa Jimenes MD [address] [phone] PCP - General Family Practice 08/09/13 documented as of this encounter
--- OUTSIDE RECORDS SUMMARY | 2025-01-19 09:29 | XMS_ITS | Encounter Summary ---
Author Organization [facility] Address [address] [place] [address] Care Team Providers Care Binder Selector Name Role Phone Carissa Jimenes MD Primary Care Provider Encounter Details Date Type Department Care Team (Latest Contact Info) Description 07/29/2006 Outpatient Historical [facility] Family Medicine- [place] [address] [place] [address] Rosario Hirsch, BRITTNEY NO ADDRESS ON FILE Carbuncle and Furuncle of Unspecified Site (Primary Dx) Social History Tobacco Use Types Packs/Day Years Used Date Smoking Tobacco: Never Assessed Comments Unknown Sex and Gender Information Value Date Recorded Sex Assigned at Not on file Legal Sex Female 5:50 AM FRONT OFFICE DIRECTOR Gender Identity Not on file Sexual Orientation Not on file documented as of this encounter Plan of Treatment Not on file documented as of this encounter Visit Diagnoses Diagnosis Carbuncle and furuncle of unspecified site- Primary documented in this encounter Care Teams Binder Selector Relationship Specialty Start Date End Date Carissa Jimenes MD [address] [facility] [address] [place] [address] PCP - General Family Practice 08/09/13 documented as of this encounter
--- OUTSIDE RECORDS SUMMARY | 2025-01-19 09:29 | XMS_ITS | Encounter Summary ---
Author Organization [facility] Address [address] [place] [address] Care Team Providers Care Water Safety Instructor Name Role Phone Carissa Jimenes MD Primary Care Provider [phone] Encounter Details Date Type Department Care Team (Latest Contact Info) Description 01/14/2007 Outpatient Historical [facility] Medicine [place] [address] [address] Rosario Hirsch NP NO ADDRESS ON FILE Unspecified Infective Otitis Externa (Primary Dx); Viral Warts, Unspecified Social History Tobacco Use Types Packs/Day Years Used Date Smoking Tobacco: Never Assessed Comments Unknown Sex and Gender Information Value Date Recorded Sex Assigned at Not on file Legal Sex Female 5:50 AM SOFTWARE ASSET MANAGEMENT ANALYST Gender Identity Not on file Sexual Orientation Not on file documented as of this encounter Plan of Treatment Not on file documented as of this encounter Visit Diagnoses Diagnosis Infective otitis externa, unspecified- Primary Viral warts, unspecified documented in this encounter Care Teams Water Safety Instructor Relationship Specialty Start Date End Date Carissa Jimenes MD [address] [phone] PCP - General Family Practice 08/09/13 documented as of this encounter
--- OUTSIDE RECORDS SUMMARY | 2025-01-19 09:29 | XMS_ITS | Encounter Summary ---
Author Organization [facility] Address [address] [place] [address] Care Team Providers Care Tree Tapping Laborer Name Role Phone Carissa Jimenes MD Primary Care Provider Encounter Details Date Type Department Care Team (Latest Contact Info) Description 03/22/2007 Outpatient Historical [facility] Medicine [place] [address] [phone] Rosario Hirsch NP NO ADDRESS ON FILE Other and Unspecified Noninfectious Gastroenteritis and Colitis (Primary Dx); Acute Pharyngitis Social History Tobacco Use Types Packs/Day Years Used Date Smoking Tobacco: Never Assessed Comments Unknown Sex and Gender Information Value Date Recorded Sex Assigned at Not on file Legal Sex Female 5:50 AM METHODS TIME ANALYST Gender Identity Not on file Sexual Orientation Not on file documented as of this encounter Plan of Treatment Not on file documented as of this encounter Visit Diagnoses Diagnosis Other and unspecified noninfectious gastroenteritis and colitis(558.9)- Primary Other and unspecified noninfectious gastroenteritis and colitis Acute pharyngitis documented in this encounter Care Teams Tree Tapping Laborer Relationship Specialty Start Date End Date Carissa Jimenes MD [address] [phone] PCP - General Family Practice 08/09/13 documented as of this encounter
--- OUTSIDE RECORDS SUMMARY | 2025-01-19 09:29 | XMS_ITS | Encounter Summary ---
Author Organization [facility] Address [address] [place] [address] Care Team Providers Care Agricultural Real Estate Agent Name Role Phone Carissa Jimenes MD Primary Care Provider Encounter Details Date Type Department Care Team (Latest Contact Info) Description 04/22/2007 Outpatient Historical [facility] Medicine [place] [address] [phone] Rosario Hirsch NP NO ADDRESS ON FILE Injury, Other and Unspecified, Knee, Leg, Ankle, and Foot (Primary Dx); Pain in Joint, Lower Leg Social History Tobacco Use Types Packs/Day Years Used Date Smoking Tobacco: Never Assessed Comments Unknown Sex and Gender Information Value Date Recorded Sex Assigned at Not on file Legal Sex Female 5:50 AM REVENUE CYCLE ANALYST Gender Identity Not on file Sexual Orientation Not on file documented as of this encounter Plan of Treatment Not on file documented as of this encounter Visit Diagnoses Diagnosis Injury, other and unspecified, knee, leg, ankle, and foot- Primary Pain in joint, lower leg documented in this encounter Care Teams Agricultural Real Estate Agent Relationship Specialty Start Date End Date Carissa Jimenes MD [address] [phone] PCP - General Family Practice 08/09/13 documented as of this encounter
--- OUTSIDE RECORDS SUMMARY | 2025-01-19 09:29 | XMS_ITS | Encounter Summary ---
Author Organization [facility] Address [address] [place]: [place] [address] Care Team Providers Care Union Organiser Name Role Phone Carissa Jimenes MD Primary Care Provider [phone] Encounter Details Date Type Department Care Team (Late st Contact Info) Description 09/07/2006 Outpatient Historical Non-Staff, Physician NO ADDRESS ON FILE Social History Tobacco Use Types Packs/Day Years Used Date Smoking Tobacco: Never Assessed Comments Unknown Sex and Gender Information Value Date Recorded Sex Assigned at Not on file Legal Sex Female 5:50 AM FLORIST MANAGER Gender Identity Not on file Sexual Orientation Not on file documented as of this encounter Plan of Treatment Not on file documented as of this encounter Procedures Procedure Name Priority Date/Time Associated Diagnosis Comments INSULIN LEVEL Routine 09/07/2006 7:44 AM FLORIST MANAGER documented in this encounter Results * INSULIN LEVEL (09/07/2006 7:44 AM FLORIST MANAGER) INSULIN LEVEL see sep report INTERFACE SYSTEM 09/07/2006 7:44 AM FLORIST MANAGER us Physician Non-Staff CHEMISTRY ORDERABLES Edited INTERFACE SYSTEM Refer to clinic/hospital department documented in this encounter Visit Diagnoses Not on filedocumented in this encounter Care Teams Union Organiser Relationship Specialty Start Date End Date Carissa Jimenes MD [address] [place] [phone] PCP - General Family Practice 08/09/13 documented as of this encounter
--- NOTE | 2025-01-19 10:01 | CT_ITS ---
WS: [id number] CT ABDOMEN AND PELVIS WITH CONTRAST HISTORY: left lower abdomen abscess TECHNIQUE: Imaging performed of the abdomen and pelvis with IV contrast. Single phase imaging of the abdomen. Coronal and sagittal reformats are submitted. All CT scans at [facility] use at least one of these dose optimization techniques: automated exposure control; mA and/or kV adjustment per patient size (includes targeted exams where dose is matched to clinical indication); or iterative reconstruction. IV CONTRAST: Omnipaque 350; 100 mL IV. Oral contrast: No DLP: 1376.93 mGy.cm COMPARISON: None available. Lower thorax: Lung bases are clear. Heart is normal size. Small hiatal hernia. Liver/biliary system: Markedly enlarged liver. Liver measures 23.6 cm in length with mild hepatic steatosis. Normal portal vein. Gallbladder: Normal. No gallstones or wall thickening. No pericholecystic fluid. Pancreas: Normal size pancreas and pancreatic duct. No adjacent inflammation. Spleen: Mild splenomegaly. Spleen measures 14.3 cm in length. Adrenal glands: Normal. Right kidney: Normal. Left kidney: Normal. Aorta: Limited contrast opacification due to poor bolus. Lymphadenopathy: None. Free fluid: None. GI tract: Unremarkable. Abdominal wall: Subcutaneous soft tissue thickening with fat stranding in the LEFT lower quadrant abdominal wall. Area of soft tissue thickening measures 1.4 cm in length and extends transversely by approximately 10 cm. There is no focal mass or abscess identified. Pelvis: No free fluid or adenopathy within the pelvis. Bones: Unremarkable. CT/CT abdomen pelvis w con* [id number] IMPRESSION: 1. Focal cellulitis LEFT lower quadrant abdominal wall. No abscess. 2. Markedly enlarged liver with mild hepatic steatosis. 3. No GI tract obstruction.
--- NOTE | 2025-01-19 10:13 | ED_ITS ---
HPI - Skin/Abscess/Foreign Bdy 2 General: Chief complaint: Skin/Abscess/Foreign Body Stated complaint: lower abdomen boil left side Time Seen by Provider: 01/19/25 09:46 History of Present Illness: 29-year-old female with a history of obe sity who presents to the emergency room with a left lower abdominal wall abscess. This has been present for several days now. She was placed on Bactrim 1 twice daily. She has been taking this for 3 days now. She has had some drainage and her primary care provider sent her to the emergency room. No fevers. No pain inside her abdomen. Related Data Home Medications ?Medication ?Instructions ?Recorded ?Confirmed cinnamon bark 500 mg capsule 500 mg PO DAILY 01/19/25 01/19/25 cranberry 500 mg capsule 500 mg PO BID 01/19/2501/19 medroxyprogesterone 10 mg tablet 10 mg PO DAILY 01/19/25 omega-3s 300 en-iqf-rim-other 1 cap PO DAILY 01/19/25 01/19/25 [id number] oil 1,000 mg capsule ([place]-3 Fish Oil) Previous Rx's ?Medication ?Instructions ?Recorded sulfamethoxazole 800 1 tab PO BID 7 days #14 tabs 01/17/25 mg-trimethoprim 160 mg tablet (Bactrim DS) Allergies Allergy/AdvReac Type Severity Reaction Status Date / Time No Known Allergies Allergy Verified 01/19/25 09:42 Review of Systems 2 Narrative: Constitutional symptoms: Negative except as documented in HPI. Skin symptoms: Negative except as documented in HPI. Eye symptoms: Negative except as documented in HPI. ENMT symptoms: Negative except as documented in HPI. Respiratory symptoms: Negative except as documented in HPI. Cardiovascular symptoms: Negative except as documented in HPI. Gastrointestinal symptoms: Negative except as documented in HPI. Genitourinary symptoms: Negative except as documented in HPI. Musculoskeletal symptoms: Negative except as documented in HPI. Neurologic symptoms: Negative except as documented in HPI. Psychiatric symptoms: Negative except as documented in HPI. Endocrine symptoms: Negative except as documented in HPI. PFSH ED 2 PFSH: Surgical History Hx of tonsillectomy Hx of adenoidectomy Family History Grandmother CAD (coronary artery disease) Cancer Hypertension Family/Other Cancer Diabetes Hypertension Grandfather Cancer Mother Diabetes Hypertension Father Diabetes Hyperlipidemia Denies family history of Dementia Chronic kidney disease (CKD) Lung disease Stroke Social History Smoking and tobacco/nicotine status: never used tobacco/nicotine Alcohol intake: never Substance/Drug Use: never Adopted: No Lives independently: Yes Household members: family Physical Exam 2 Narrative: EXAM NARRATIVE: General: Alert, no acute distress. Skin: warm and dry. Indurated lesion is seen below. I do not feel any obvious fluctuance at this time Head: Normocephalic Neck: Trachea midline Eye: Extraocular movements are intact. Ears, nose, mouth and throat: Oral mucosa moist Respiratory: Respirations are non-labored Musculoskeletal: Normal ROM Gastrointestinal: Abdomen does not appear distended Neurological: Alert and oriented, No focal neurological deficit observed. Psychiatric: Cooperative, appropriate mood & affect. Course 2 Vital Signs: Vital signs: Vital Signs Temperature 98.4 F 01/19/25 09:37 Pulse Rate 103 H 01/19/25 12:28 Blood Pressure 162/60 01/19/25 12:28 Pulse Oximetry 99 01/19/25 12:28 Oxygen Delivery Me thod Room Air 01/19/25 09:37 MDM - Skin/Abscess/Foreign Bdy Medicial Decision Making Medical decision making: Differential diagnosis including but not limited to and based on the above HPI, review of systems and physical exam in this patient with with an abscess would have concern for systemic infection or tunneling type infection. Orders placed to evaluate differential diagnosis based on the above differential, HPI and physical exam Consultation: I discussed the patient with Dr. Davalos who recommends a CT scan. Lab work is being done. I spoke with him again. There is no abscess on CT scan so he suggest admission for IV antibiotics given she has failed outpatient therapy. Lab Review: Laboratory results were reviewed and interpreted by myself the emergency room physician. Mild leukocytosis. No anemia. No renal failure. Inflammatory markers are quite elevated. ESR is 87. CRP is 200. CT of the abdomen pelvis with contrast: Focal cellulitis left lower quadrant abdominal wall with no abscess. Hepatic steatosis. No other abnormalities. This was reviewed and interpreted by myself the emergency room physician. I also reviewed the radiology report. I reviewed the patient's medical record. Reexamination: Patient remained stable. No increased work of breathing. No altered mental status. No focal motor deficits. No increased size of cellulitic area. Consultation: I spoke with Dr. Randhawa who agrees to admission Assessment and plan: Cellulitis Failed outpatient therapy Morbid obesity ?IV vancomycin and cefepime in the emergency room -I discussed the patient with the hospitalist on-call who is admitting the patient. - Discussed findings and plan with patient. Answered any questions. - All laboratory values were reviewed and interpreted personally by myself, the ER physician - All imaging was reviewed and interpreted personally by myself, the ER physician. - Evaluation and treatment of this problem were appropriate in the emergency setting Lab Data 01/19/25 10:17 01/19/25 10:17 Radiology Impressions Abdomen/Pelvis CT 01/19/25 10:01 IMPRESSION: 1. Focal cellulitis LEFT lower quadrant abdominal wall. No abscess. 2. Markedly enlarged liver with mild hepatic steatosis. 3. No GI tract obstruction. Laboratory Results WBC 10.50 10^3/uL (3.29-11.43) 01/19/25 10:17 RBC 4.19 10^6/uL (3.85-5.65) 01/19/25 10:17 Hgb 11.30 g/dL (11.27-16.99) 01/19/25 10:17 Hct 34.5 % (36-47) L 01/19/25 10:17 MCV 82.3 fl (85-98) L 01/19/25 10:17 MCH 27.0 pg (27-33) 01/19/25 10:17 MCHC 32.8 g/dL (30-55) 01/19/25 10:17 RDW 12.4 % (12.1-15.1) 01/19/25 10:17 Plt Count 291 10^3/cmm (157-399) 01/19/25 10:17 MPV 9.8 fL (7.4-10.4) 01/19/25 10:17 Neut % (Auto) 84.9 % 01/19/25 10:17 Lymph % (Auto) 6.9 % 01/19/25 10:17 [place] % (Auto) 4.7 % 01/19/25 10:17 Eos % (Auto) 2.6 % 01/19/25 10:17 Baso % (Auto) 0.2 % 01/19/25 10:17 Neut # (Auto) 8.93 10^3/uL (1.8-7.7) H 01/19/25 10:17 Lymph # (Auto) 0.7 10^3/uL (0.8-4.8) L 01/19/25 10:17 [place] # (Auto) 0.5 10^3/uL (0.2-0.9) 01/19/25 10:17 Eos # (Auto) 0.3 10^3/uL (0.0-0.8) 01/19/25 10:17 Baso # (Auto) 0.0 10^3/uL (0.0-0.1) 01/19/25 10:17 Nucleated RBC % (auto) 0 % 01/19/25 10:17 Nucleated RBCs # 0.0 /100WBC 01/19/25 10:17 ESR 87 mm/hr (0-15) H 01/19/25 10:17 Sodium 132 mmol/L (136-145) L 01/19/25 10:17 Potassium 4.5 mmol/L (3.5-5.1) 01/19/25 10:17 Chloride 94 mmol/L (98-107) L 01/19/25 10:17 Carbon Dioxide 25 mmol/L (22-29) 01/19/25 10:17 Anion Gap 17.5 (5-19) 01/19/25 10:17 BUN 14 mg/dL (6-20) 01/19/25 10:17 Creatinine 1.0 mg/dL (0.5-0.9) H 01/19/25 10:17 GFR Calculation 64.7 mL/min (90-130) L 01/19/25 10:17 Glucose 414 mg/dL (65-115) H 01/19/25 10:17 Calculated Osmolality 292 mOsm/kg (285-295) 01/19/25 10:17 Calcium 8.8 mg/dL (8.5-10.5) 01/19/25 10:17 Total Bilirubin 0.7 mg/dL (0.15-1.2) 01/19/25 10:17 AST 67 U/L (0-32) H 01/19/25 10:17 ALT 90 U/L (0-33) H 01/19/25 10:17 Alkaline Phosphatase 371 U/L (35-105) H 01/19/25 10:17 C-Reactive Protein 202.3 mg/L (0.0-4.9) H 01/19/25 10:17 Total Protein 7.2 g/dL (6.6-8.7) 01/19/25 10:17 Albumin 2.9 g/dL (3.5-5.2) L 01/19/25 10:17 Globulin 4.3 g/dL (1.3-4.6) 01/19/25 10:17 All radiology interpretation(s) finalized by discharge Discharge Plan Discharge Patient Disposition: Admitted As Inpatient Clinical Impression: Cellulitis of abdominal wall Condition: Stable Coding Level of Care Code ED [employer] for Barry Orta
[2025-01-19] MEDS: iohexol 350 mg/mL 500 mL Btl (per mL) IV (10:32)
[2025-01-19 10:36] LABS: Basophils % 0.2 %; Eosinophils # 0.3 10^3/uL (0.0-0.8); Eosinophils % 2.6 %; Hematocrit 34.5 % (36-47); Lymphocytes # 0.7 10^3/uL (0.8-4.8); Lymphocytes % 6.9 %; Mean Corpuscular HGB Conc 32.8 g/dL (30-55); Mean Corpuscular Volume 82.3 fl (85-98); Mean Platelet Volume 9.8 fL (7.4-10.4); Monocytes # 0.5 10^3/uL (0.2-0.9); Monocytes % 4.7 %; Neutrophils # 8.93 10^3/uL (1.8-7.7); Neutrophils % 84.9 %; Nucleated Red Blood Cells % 0 %; Platelet Count 291 10^3/cmm (157-399); Red Blood Count 4.19 10^6/uL (3.85-5.65); Red Cell Distribution Width 12.4 % (12.1-15.1)
[2025-01-19 10:51] LABS: Alanine Aminotransferase 90 U/L (0-33); Albumin Level 2.9 g/dL (3.5-5.2); Alkaline Phosphatase 371 U/L (35-105); Anion Gap 17.5 (5-19); Aspartate Amino Transferase 67 U/L (0-32); Blood Urea Nitrogen 14 mg/dL (6-20); C Reactive Protein 202.3 mg/L (0.0-4.9); Calcium 8.8 mg/dL (8.5-10.5); Carbon Dioxide 25 mmol/L (22-29); Chloride 94 mmol/L (98-107); Globulin 4.3 g/dL (1.3-4.6); Glomerular Filtration Rate 64.7 mL/min (90-130); Glucose 414 mg/dL (65-115); Osmolality Calculated 292 mOsm/kg (285-295); Potassium 4.5 mmol/L (3.5-5.1); Sodium 132 mmol/L (136-145); Total Bilirubin 0.7 mg/dL (0.15-1.2); Total Protein 7.2 g/dL (6.6-8.7)
[2025-01-19 11:03] LABS: Erythrocyte Sedimentation Rate 87 mm/hr (0-15)
--- NOTE | 2025-01-19 11:29 | PC.NURSE ---
antibiotics delayed d/t pending blood cultures.
[2025-01-19] MEDS: cefepime 2,000 mg SDV 2000 MG IVP (12:20)
[2025-01-19] MEDS: vancomycin 2,000 MG/400 ML PIGGYBACK 200 MG IV (12:27)
--- NOTE | 2025-01-19 12:30 | PC.NURSE ---
provided with water per Dr. Anderson
--- NOTE | 2025-01-19 13:17 | PM.HP ---
Providers/Chief Complaint Admitting Physician: Andrew Randhawa MD Primary Care Provider: MEHNAZ Stevens Chief Complaint: lower abdomen boil left side History of Present Illness Cally Ray is a 29 year old female with past medical history of morbid obesity, type 2 diabetes mellitus not on medication currently as she did not like how metformin used to make her feel for last few years, recurrent boils on the skin presents to the ER today because of pain, discharge from her abdomen on the left lower side. Patient states she had a boil which burst open over a week ago and she was taking care of it by herself that she usually does but this started draining again and she started developing high-grade fever since Thursday which bothered her. She was started on Bactrim by her PCP. She states she has overall taken 3 tablets of Bactrim till now. As she continued to have high-grade fevers she presented to the ER. In the ER CT abdomen pelvis was negative for any abscess collection. On review of labs it seems her blood glucose on BMP was more than 400, sodium level is 132. Patient has been given 1 dose of IV vancomycin and cefepime so far in the ER. Review of Systems General: Reports: 10 or more systems reviewed and unremarkable except in HPI and below Const: Denies: fever(s), chills, body aches, change in appetite, change in weight, malaise, night sweats, diaphoresis, change in sleep pattern, daytime sleepiness or snoring Eyes: Denies: change in vision, blurry vision, photophobia, eye discomfort or eye discharge ENMT: Denies: throat pain, enlarged tonsils, hoarseness, mouth pain, oral sores, dry mouth, tinnitus, nasal congestion or post nasal drip Card: Denies: chest pain, palpitations, irregular heart rhythm, edema, swelling of feet/ankles, lightheadedness, syncope, pre-syncope, dyspnea on exertion, orthopnea, leg pain with exertion or acrocyanosis Resp: Denies: dyspnea, productive cough, non-productive cough, wheezing, stridor, pain on inspiration, change in phlegm color, hemoptysis or chest congestion GI: Denies: abdominal pain, nausea, vomiting, hematemesis, coffee ground emesis, dysphagia, heartburn, diarrhea, constipation, bloating, GI cramping, change in bowel habits, pain on defecation, hematochezia or melena : Denies: flank pain, dysuria, urinary frequency, urinary urgency, urinary hesitancy, nocturia or hematuria Musc: Denies: neck pain, back pain, extremity pain, joint pain, joint swelling, joint redness, joint stiffness or limited range of motion Neuro: Denies: headache(s), numbness in extremities, weakness in extremities, sensory changes, lack of coordination, difficulty walking, frequent falls, dizziness, vertigo, confusion, Slurred speech present, difficulty communicating thoughts or seizure-like activity Psych: Denies: anxiety, depression, mood swings, panic attacks, hopelessness or irritability Endo: Denies: polyuria, polydipsia, tired all the time, cold intolerance, excessive sweating, flushing or heat intolerance [place]/Lymph: Denies: easy bruising or easy bleeding All/Imm: Denies: tongue swelling, facial swelling or acute wheezing Medications/Allergies Home Medications ?Medication ?Instructions ?Recorded ?Confirmed ?Last Taken ?Type sulfamethoxazole 800 1 tab PO BID 7 days #14 tabs 01/17/25 01/19/25 01/18/25 Rx mg-trimethoprim 160 mg tablet (Bactrim DS) cinnamon bark 500 mg capsule 500 mg PO DAILY 01/19/25 01/19/25 Unknown History cranberry 500 mg capsule 500 mg PO BID 01/19/25 01/19/25 Unknown History medroxyprogesterone 10 mg tablet 10 mg PO DAILY 01/19/25 01/19/25 01/18/25 History omega-3s 300 se-ilj-png-other 1 cap PO DAILY 01/19/25 01/19/25 Unknown History [id number] oil 1,000 mg capsule ([place]-3 Fish Oil) Allergies Allergy/AdvReac Type Severity Reaction Status Date / Time No Known Allergies Allergy Verified 01/19/25 09:42 PFSH Acute PFSH: Medical History (Updated 01/19/25 @ 13:58 by Andrew Randhawa MD) Type 2 diabetes mellitus Recurrent infection of skin Morbid obesity Surgical History Hx of tonsillectomy Hx of adenoidectomy Family History Grandmother CAD (coronary artery disease) Cancer Hypertension Family/Other Cancer Diabetes Hypertension Grandfather Cancer Mother Diabetes Hypertension Father Diabetes Hyperlipidemia Denies family history of Dementia Chronic kidney disease (CKD) Lung disease Stroke Social History Smoking and tobacco/nicotine status: never used tobacco/nicotine Alcohol intake: never Substance/Drug Use: never Adopted: No Lives independently: Yes Household members: family Vitals/I&O/Wt Last Vital Signs Temp 98.4 F 01/19/25 09:37 Pulse 103 H 01/19/25 12:28 BP 162/60 01/19/25 12:28 Pulse Ox 99 01/19/25 12:28 O2 Del Method Room Air 01/19/25 09:37 Weight last 48 hrs Weight 147.418 kg Physical Exam Narrative: General: No acute distress, AO x3 HEENT: PERRLA, pupils bilaterally equal and reactive Chest: Normal vesicular breath sounds, no added sounds, equal good air entry bilaterally CVS: S1-S2 regular, no murmurs, no tachycardia, no gallops, no rubs Abdomen: Soft, nontender, no organomegaly, bowel sounds present Neuro: No focal deficits, no facial deformity, AO x3, power 5/5 in all limbs Skin: OTHER: Data 01/19/25 10:17 01/19/25 10:17 Micro: Microbiology 01/19/25 12:08 Blood Culture - Preliminary Blood SPECIMEN COLLECTED 01/19/25 12:05 Blood Culture - Preliminary Blood SPECIMEN COLLECTED A&P Assessment and plan (1) Cellulitis of abdominal wall: (2) Morbid obesity: (3) Recurrent infection of skin: (4) Type 2 diabetes mellitus: (5) Failure of outpatient treatment: Plan 29-year-old young female, morbidly obese, type II diabetic not currently on medications presents to the ER with cellulitis of left lower abdominal wall after failure of outpatient Bactrim. Cellulitis abdominal wall: CT of the pelvis negative for abscess. Check MRSA swab, blood culture, HbA1c. Surgery consulted from the ER. Wound care accordingly. Most likely patient will not treat need debridement. Empirically start patient on IV vancomycin and Zosyn. Patient will most likely need IV antibiotics a couple of days before being transitioned to oral antibiotics. Check hCG. Type 2 diabetes mellitus: Currently not on treatment. Most likely uncontrolled. Blood glucose level more than 400. Check urinalysis, urine ketones, ketones. Check A1c. Start on insulin sliding scale. Full code Carb consistent diet Famotidine for PUD prophylaxis Heparin 5000 every 12 hourly for DVT prophylaxis. PDMP PDMP Reviewed: Not Reviewed Attestations Medical Necessity Statement*: Admission for more than 2 midnights for management of cellulitis of abdominal wall, failure to outpatient treatment in a young morbidly obese diabetic female with uncontrolled type 2 diabetes mellitus due to noncompliance Diagnoses Cellulitis of abdominal wall L03.311 Morbid obesity E66.01 Recurrent infection of skin L08.9 Type 2 diabetes mellitus E11.9 Failure of outpatient treatment Z78.9
--- NOTE | 2025-01-19 13:39 | PM.CONSULT ---
Providers/Reason For Consult Consulting Physician/Specialty*: Dr. Davalos general surgery Reason for Consult*: Left flank cellulitis Attending Physician: Andrew Randhawa MD Primary Care Provider: MEHNAZ Stevens History of Present Illness History of Present Illness Cally Ray is a 29 year old female who presented with a left flank cellulitis with a scab. CT scan did not show an abscess. Medications/Allergies Home Medications ?Medication ?Instructions ?Recorded ?Confirmed ?Last Taken ?Type sulfamethoxazole 800 1 tab PO BID 7 days #14 tabs 01/17/25 01/19/25 01/18/25 Rx mg-trimethoprim 160 mg tablet (Bactrim DS) cinnamon bark 500 mg capsule 500 mg PO DAILY 01/19/25 01/19/25 Unknown History cranberry 500 mg capsule 500 mg PO BID 01/19/25 01/19/25 Unknown History medroxyprogesterone 10 mg tablet 10 mg PO DAILY 01/19/25 01/19/25 01/18/25 History omega-3s 300 ay-txv-jrb-other 1 cap PO DAILY 01/19/25 01/19/25 Unknown History [id number] oil 1,000 mg capsule ([place]-3 Fish Oil) Allergies Allergy/AdvReac Type Severity Reaction Status Date / Time No Known Allergies Allergy Verified 01/19/25 09:42 PFSH Acute PFSH: Medical History (Updated 01/19/25 @ 15:17 by Helio Davalos MD) Type 2 diabetes mellitus Recurrent infection of skin Morbid obesity Surgical History Hx of tonsillectomy Hx of adenoidectomy Family History Grandmother CAD (coronary artery disease) Cancer Hypertension Family/Other Cancer Diabetes Hypertension Grandfather Cancer Mother Diabetes Hypertension Father Diabetes Hyperlipidemia Denies family history of Dementia Chronic kidney disease (CKD) Lung disease Stroke Social History Smoking and tobacco/nicotine status: never used tobacco/nicotine Alcohol intake: never Substance/Drug Use: never Adopted: No Lives independently: Yes Household members: family Vitals/I&O/Wt Last Vital Signs Temp 98.4 F 01/19/25 09:37 Pulse 103 H 01/19/25 12:28 BP 162/60 01/19/25 12:28 Pulse Ox 99 01/19/25 12:28 O2 Del Method Room Air 01/19/25 09:37 Weight last 48 hrs Weight 325 lb Physical Exam Narrative: Chest: Unlabored breathing room air. No lymphadenopathy. Heart: Regular rate and rhythm. Abdomen: Soft, nontender, nondistended. No masses or lymphadenopathy. Left flank cellulitis with a scab. No fluctuance. Data 01/19/25 10:17 01/19/25 10:17 Micro: Microbiology 01/19/25 12:08 Blood Culture - Preliminary Blood SPECIMEN COLLECTED 01/19/25 12:05 Blood Culture - Preliminary Blood SPECIMEN COLLECTED A&P Assessment and plan (1) Cellulitis: Plan 29-year-old female who presents with a left flank cellulitis. Patient does have a scab but no fluctuance and no abscess on CT scan. Recommend treating with antibiotics. Will remain available should patient develop an abscess.. PDMP PDMP Reviewed: Not Reviewed Coding Level of Care Code 39418 Diagnoses Cellulitis L03.90
--- NOTE | 2025-01-19 14:15 | PC.NURSE ---
redressed wound with non-stick bandage and abd bandage.
[2025-01-19 14:30] LABS: Ketone (Acetest) Serum Negative (Negative)
[2025-01-19 14:32] LABS: HCG, Serum Qual Negative (Negative)
[2025-01-19 14:34] LABS: Estmated Average Glucose 324; Hemoglobin A1C 12.9 % (4.0-6.0)
[2025-01-19 14:46] LABS: HCG Quantitative < 1.00 mIU/mL; Procalcitonin 1.23 ng/mL (0-0.5); Thyroid Stimulating Hormone 1.74 uIU/mL (0.27-4.20)
[2025-01-19 14:57] LABS: Iron 42 ug/dL (37-145); Total Iron Binding Capacity 182 mcg/dl; Unsaturated Iron Binding 140 ug/dL (112-347)
[2025-01-19 15:58] LABS: Bilirubin Urine Negative (Negative); Blood Urine 3+ (Negative); Glucose Urine UA 2+ (Normal); Ketones Urine Trace (Negative); Leukocyte Esterase Urine Negative (Negative); Nitrate Urine Negative (Negative); Protein Urine 3+ (Negative); Urine Appearance Clear (CLEAR); Urine Color Yellow (Yellow)
[2025-01-19 16:02] LABS: Add Urine Microscopic? YES; Bacteria Urine None Seen /hpf; RBC Urine >100 /hpf (0-2); Squamous Epithelial Cell Urine 0-5 /hpf (0-5); WBC Urine 0-5 /hpf (0-5)
[2025-01-19 16:03] LABS: Specific Gravity, Urine 1.037 (1.005-1.030)
[2025-01-19 16:04] LABS: Add Urine Culture? Yes
[2025-01-19 16:26] LABS: Lactic Sepsis W/Reflex 1.6 mmol/L (0.5-2.2)
[2025-01-19 17:21] LABS: MRSA PCR OZH (swab) MRSA Detected (Not Detecte)
[2025-01-19 20:30] LABS: Glucose Point of Care 303 mg/dL (70-110)
[2025-01-19] MEDS: heparin 5,000 unit/mL INJ 1 mL 5000 UNIT SUBCUT (21:07)
[2025-01-19] MEDS: famotidine 20 mg Tablet PO (21:07)
[2025-01-19] MEDS: sodium chloride 0.9% 1,000 ML 75 ML IV (21:08)
[2025-01-19] MEDS: insulin lispro 100 unit/1 mL SUBCUT (21:08)
[2025-01-19] MEDS: piperacillin-tazobactam 3.375 GM in sodium chloride 0.9% (plus) 50 ML IV (21:08)
[2025-01-19] MEDS: vancomycin 1,750 MG/350 ML PIGGYBACK 175 MG IV (23:59)
[2025-01-20] VITALS (8 sets, daily range): BP systolic 125–175; BP diastolic 74–96; PULSE 89–102; RESP 17–19; TEMP 36.7–37.1; O2SAT 94–97
[2025-01-20 02:21] LABS: Vitamin B12 730 pg/mL (232-1245)
[2025-01-20] MEDS: piperacillin-tazobactam 3.375 GM in sodium chloride 0.9% (plus) 50 ML IV ×3 (04:10→20:45)
[2025-01-20] MEDS: heparin 5,000 unit/mL INJ 1 mL 5000 UNIT SUBCUT ×3 (04:10→20:44)
[2025-01-20 06:01] LABS: Basophils % 0.4 %; Eosinophils # 0.3 10^3/uL (0.0-0.8); Lymphocytes # 1.2 10^3/uL (0.8-4.8); Mean Corpuscular HGB Conc 31.9 g/dL (30-55); Mean Corpuscular Hemoglobin 27.2 pg (27-33); Mean Corpuscular Volume 85.2 fl (85-98); Mean Platelet Volume 9.5 fL (7.4-10.4); Monocytes # 0.5 10^3/uL (0.2-0.9); Monocytes % 5.5 %; Neutrophils # 6.43 10^3/uL (1.8-7.7); Neutrophils % 75.4 %; Nucleated Red Blood Cells % 0 %; Platelet Count 284 10^3/cmm (157-399); Red Blood Count 3.64 10^6/uL (3.85-5.65); Red Cell Distribution Width 12.6 % (12.1-15.1); White Blood Count 8.52 10^3/uL (3.29-11.43)
[2025-01-20 06:28] LABS: Chol HDL Ratio 9.94 mg/dL (0.0-4.40); Cholesterol 169 mg/dL (0-200); HDL Cholesterol 17 mg/dL (60-100); LDL Cholesterol Calculated 91 mg/dL (50-129); LDL HDL Ratio 5.35 RATIO (0.00-3.22); Triglycerides 307 mg/dL (0-150)
[2025-01-20 06:30] LABS: Alanine Aminotransferase 60 U/L (0-33); Albumin Level 2.4 g/dL (3.5-5.2); Alkaline Phosphatase 307 U/L (35-105); Anion Gap 17.4 (5-19); Aspartate Amino Transferase 31 U/L (0-32); Blood Urea Nitrogen 15 mg/dL (6-20); Calcium 8.3 mg/dL (8.5-10.5); Carbon Dioxide 23 mmol/L (22-29); Chloride 100 mmol/L (98-107); Creatinine Clr Calc Pharmacy 119.7959; Globulin 3.8 g/dL (1.3-4.6); Glomerular Filtration Rate 64.7 mL/min (90-130); Glucose 201 mg/dL (65-115); Magnesium 2.1 mg/dL (1.7-2.3); Osmolality Calculated 289 mOsm/kg (285-295); Phosphorus 3.8 mg/dL (2.5-4.5); Potassium 4.4 mmol/L (3.5-5.1); Sodium 136 mmol/L (136-145); Total Bilirubin 0.4 mg/dL (0.15-1.2); Total Protein 6.2 g/dL (6.6-8.7)
[2025-01-20 06:30] LABS: Glucose Point of Care 221 mg/dL (70-110)
[2025-01-20 06:34] LABS: Procalcitonin 1.26 ng/mL (0-0.5)
[2025-01-20 06:43] LABS: Folate Level 11.5 ng/mL (4.8-37.3)
[2025-01-20] MEDS: famotidine 20 mg Tablet PO ×2 (08:10→17:14)
[2025-01-20] MEDS: nystatin 100,000 unit/mL UDC 5 mL 200000 UNIT PO ×4 (08:10→20:44)
[2025-01-20] MEDS: insulin lispro 100 unit/1 mL SUBCUT ×4 (08:11→20:44)
--- NOTE | 2025-01-20 08:11 | PHA.VACGOAL ---
Vancomycin Goal - Goal Vancomycin Goal:: 10-15 mg/L Vancomycin Indication:: SSTI - Therapy Current therapy:: Pip/Tazo Day of therpy:: Day [1]of [] . Actual body weight (kg): 143.789 kg - Data Labs: WBC 8.52 10^3/uL (3.29-11.43) 01/20/25 05:18 RBC 3.64 10^6/uL (3.85-5.65) L 01/20/25 05:18 Hgb 9.90 g/dL (11.27-16.99) L 01/20/25 05:18 Hct 31.0 % (36-47) L 01/20/25 05:18 MCV 85.2 fl (85-98) 01/20/25 05:18 MCH 27.2 pg (27-33) 01/20/25 05:18 MCHC 31.9 g/dL (30-55) 01/20/25 05:18 RDW 12.6 % (12.1-15.1) 01/20/25 05:18 Sodium 136 mmol/L (136-145) 01/20/25 05:18 Potassium 4.4 mmol/L (3.5-5.1) 01/20/25 05:18 Chloride 100 mmol/L (98-107) 01/20/25 05:18 Carbon Dioxide 23 mmol/L (22-29) 01/20/25 05:18 Anion Gap 17.4 (5-19) 01/20/25 05:18 BUN 15 mg/dL (6-20) 01/20/25 05:18 Creatinine 1.0 mg/dL (0.5-0.9) H 01/20/25 05:18 GFR Calculation 64.7 mL/min (90-130) L 01/20/25 05:18 Treatment plan:: new consult Regimen:: New start vancomycin for cellulitis. No prior vancomycin history found. Patient received load dose of 2000 mg. Started on maintenance dose of 1750 mg q12h.
[2025-01-20] MEDS: vancomycin 1,750 MG/350 ML PIGGYBACK 175 MG IV (11:10)
[2025-01-20 11:24] LABS: Glucose Point of Care 274 mg/dL (70-110)
--- NOTE | 2025-01-20 11:42 | P.CONIM_ITS ---
<Statement entered by Lenny Hodges MD - 01/23/25 07:36> I have reviewed the documentation and plan of care and agree with the assessment and plan of care as written. Dr. Lenny Hodges Providers/Reason For Consult 2 Consulting Physician/Specialty*: Wound Care Reason for Consult*: Open wound of left abdomen Requesting Physician: Dr. Randhawa Attending Physician: Andrew Randhawa MD Primary Care Provider: MEHNAZ Stevens History of Present Illness History of Present Illness Cally Ray is a 29 year old female with a past medical history of type 2 diabetes mellitus, obesity, and recurrent skin infections. She was admitted to the hospital on January 19 for cellulitis of her abdominal wall. She states she noticed a bump approximately 1 week ago to her left lower abdomen. She states it progressed to a reddened area and caused her a great deal of pain. She went to her primary care on Thursday who started her on Bactrim. She reports she was still having fevers and increased pain, so she came in for evaluation at [facility] emergency room. She reports she has had recurrent skin infections such as boils in the past, though this has not mimicked the normal course of the previous boils. She is currently being medically managed by hospitalist service. Per CT, there is no identifiable abscess. She denies any fevers, chills, nausea, vomiting today. Optifoam dressing was in place to left lower abdomen and noted to be saturated upon arrival. Medications/Allergies Home Medications ?Medication ?Instructions ?Recorded ?Confirmed ?Last Taken ?Type sulfamethoxazole 800 1 tab PO BID 7 days #14 tabs 01/17/25 01/19/25 01/18/25 Rx mg-trimethoprim 160 mg tablet (Bactrim DS) cinnamon bark 500 mg capsule 500 mg PO DAILY 01/19/25 01/19/25 Unknown History cranberry 500 mg capsule 500 mg PO BID 01/19/2501/19 Unknown History medroxyprogesterone 10 mg tablet 10 mg PO DAILY 01/19/25 01/18/25 History omega-3s 300 [id number] 1 cap PO DAILY 01/19/25 01/19/25 Unknown History [id number] oil 1,000 mg capsule ([place]-3 Fish Oil) Allergies Allergy/AdvReac Type Severity Reaction Status Date / Time No Known Allergies Allergy Verified 01/19/25 09:42 Current Medications Generic Name Dose Route Start Last Admin Trade Name Davidq PRN Reason Stop Dose Admin Docusate Sodium 100 mg 01/19/25 20:30 01/20/25 08:11 Docusate Sodium 100 Mg Capsule PO Not Given BID POPEYE Famotidine 20 mg 01/19/25 20:30 01/20/25 08:10 Famotidine 20 Mg Tablet PO 20 mg BID POPEYE Administration Heparin Sodium (Porcine) 5,000 unit 01/19/25 20:30 01/20/25 04:10 Heparin 5,000 Unit/Ml Inj 1 Ml SUBCUT 5,000 unit Q8H POPEYE Administration Piperacillin Sod/Tazobactam 50 mls @ 12.5 mls/hr 01/20/25 05:00 01/20/25 08:10 Sod 3.375 gm/ Sodium Chloride IV Infused Q8H POPEYE Infusion Vancomycin HCl 1,750 mg in 350 mls @ 175 mls/hr 01/20/25 00:01 01/20/25 11:10 Vancocin IV 175 mls/hr Q12H POPEYE Administration Insulin Human Lispro 0 unit 01/19/25 21:00 01/20/25 08:11 Insulin Lispro 100 Unit/1 Ml SUBCUT 6 unit WM&BEDTIME POPEYE Administration Protocol Nystatin 200,000 unit 01/20/25 09:00 01/20/25 08:10 Nystatin 100,000 Unit/Ml Udc 5 Ml PO 200,000 unit QID POPEYE Administration PFSH Acute 2 PFSH: Medical History Type 2 diabetes mellitus Recurrent infection of skin Morbid obesity Surgical History Hx of tonsillectomy Hx of adenoidectomy Family History Grandmother CAD (coronary artery disease) Cancer Hypertension Family/Other Cancer Diabetes Hypertension Grandfather Cancer Mother Diabetes Hypertension Father Diabetes Hyperlipidemia Denies family history of Dementia Chronic kidney disease (CKD) Lung disease Stroke Social History Smoking and tobacco/nicotine status: never used tobacco/nicotine Alcohol intake: never Substance/Drug Use: never Adopted: No Lives independently: Yes Household members: family Vitals/I&O/Wt Last Vital Signs Temp 98.4 F 01/20/25 07:49 Pulse 89 01/20/25 07:49 Resp 19 H 01/20/25 07:49 BP 159/88 01/20/25 07:49 Pulse Ox 94 01/20/25 07:49 O2 Del Method Room Air 01/20/25 04:00 01/19/25 01/20/25 01/20/25 22:59 06:59 14:59 Intake Total 450 / 450 350 / 800 1530 / 1530 Balance 450 / 450 350 / 800 1530 / 1530 Weight last 48 hrs Weight 143.789 kg Weight 144.832 kg Weight 147.418 kg Data 01/20/25 05:18 01/20/25 05:18 Micro: Microbiology 01/19/25 15:46 Urine Culture - Preliminary Urine,Clean Catch 01/19/25 12:08 Blood Culture - Preliminary Blood SPECIMEN COLLECTED 01/19/25 12:05 Blood Culture - Preliminary Blood SPECIMEN COLLECTED A&P Assessment and plan (1) Cellulitis of abdominal wall: (2) Open wound of abdomen: Plan Open wound of abdominal wall with continuous purulent drainage from center of wound. I probed the area that is continuously exuding and it it does not probe to deeper structures and is not able to be packed. The surrounding tissue is indurated with very mild erythema. Upon palpation, purulent material exudes from multiple sites within the wound bed. I have discussed this case with Dr. Hodges, my collaborating provider. The exudate is likely coming from a phlegmon which could potentially become an abscess. Due to exquisite tenderness upon palpation, the patient would not be able to tolerate beside debridement nor I&D at this time. This wound could potentially require a surgical intervention in the near future where her pain can be managed and the wound can be debrided fully. I discussed my findings and recommendations with Dr. Randhawa. For now I will recommend conservative treatment with Santyl daily given that surgical I&D/debridement is not indicated per surgeon. Due to the patients diagnosis of Type 2 DM and obesity, she will need ongoing wound care. Will schedule her an appointment at [facility] on January 24 at 9:[address] Hodges. Wound care will sign off for now. Any further wound care recommendations should be guided by hospitalist service. PDMP PDMP Reviewed: Not Reviewed Consult Attestations 2 Time Spent in Patient Care: 16 - 35 minutes Coding Level of Care Code Acute Code for Chg Fwd Diagnoses Cellulitis of abdominal wall L03.311 Open wound of abdomen S31.109A Wound Assessment Wound Assessment Wound Number 1 Abdomen- Lower Quadrant: Descriptor: Left Primary Etiology: Infection- Not Elsewhere Classified Length (cm): 4 cm Width (cm): 7 cm Depth (cm): 0.1 cm Epithelialization: None Tunneling: No Undermining: No Exudate Amount: Large Drainage Type: Purulent Foul Odor After Cleansing: No Slough/Fibrin?: Yes Granulation Amount: None Necrotic Amount: Large (67-100%) Necrotic Type: Eschar and Adherent Slough Wound Orders Wound Number 1: Duration: 7 Days Dressing change frequency: Daily Wound Cleansing: Saline Primary Wound Care Dressing: Santyl Secondary Wound Care Dressing: Gauze, ABD pad, and tape
[2025-01-20] MEDS: acetaminophen 325 mg Tablet 650 MG PO (11:46)
--- NOTE | 2025-01-20 11:46 | P.PN_ITS ---
Subjective 2 Subjective: Cellulitis improved. No fluctuance Vitals/I&O/Wt Last Vital Signs Temp 98.4 F 01/20/25 07:49 Pulse 89 01/20/25 07:49 Resp 19 H 01/20/25 07:49 BP 159/88 01/20/25 07:49 Pulse Ox 94 01/20/25 07:49 O2 Del Method Room Air 01/20/25 04:00 01/19/25 01/20/25 01/20/25 22:59 06:59 14:59 Intake Total 450 / 450 350 / 800 1530 / 1530 Balance 450 / 450 350 / 800 1530 / 1530 Weight last 48 hrs Weight 317 lb Weight 319 lb 4.8 oz Weight 325 lb Physical Exam 2 Narrative: Chest: Unlabored breathing room air. No lymphadenopathy. Heart: Regular rate and rhythm. Abdomen: Soft, nontender, nondistended. No masses or lymphadenopathy. Left flank cellulitis improved, no fluctuance. Data 01/20/25 05:18 01/20/25 05:18 Micro: Microbiology 01/19/25 15:46 Urine Culture - Preliminary Urine,Clean Catch 01/19/25 12:08 Blood Culture - Preliminary Blood SPECIMEN COLLECTED 01/19/25 12:05 Blood Culture - Preliminary Blood SPECIMEN COLLECTED A&P Assessment and plan (1) Cellulitis: Plan 29-year-old female who presented with left flank cellulitis. Improved on today's exam. No fluctuance. Continue antibiotics. No indication for incision and drainage at this point. Will sign off. PDMP PDMP Reviewed: Not Reviewed Attestations 2 Medical Necessity Statement*: N/A Coding Level of Care Code 42504 Diagnoses Cellulitis L03.90
--- NOTE | 2025-01-20 15:08 | P.PN_ITS ---
Subjective 2 Subjective: No acute events overnight. Patient has remained hemodynamically stable and afebrile. Laying comfortably in bed on examination. States she is feeling slightly better. Vitals/I&O/Wt Last Vital Signs Temp 98.6 F 01/20/25 12:24 Pulse 92 01/20/25 12:24 Resp 19 H 01/20/25 12:24 BP 175/81 01/20/25 12:24 Pulse Ox 95 01/20/25 12:24 O2 Del Method Room Air 01/20/25 04:00 01/20/25 01/20/25 01/20/25 06:59 14:59 22:59 Intake Total 350 / 800 2120 / 2120 Balance 350 / 800 2120 / 2120 Weight last 48 hrs Weight 143.789 kg Weight 144.832 kg Weight 147.418 kg Physical Exam 2 Narrative: General: No acute distress, AO x3 HEENT: PERRLA, pupils bilaterally equal and reactive Chest: Normal vesicular breath sounds, no added sounds, equal good air entry bilaterally CVS: S1-S2 regular, no murmurs, no tachycardia, no gallops, no rubs Abdomen: Soft, nontender, no organomegaly, bowel sounds present Neuro: No focal deficits, no facial deformity, AO x3, power 5/5 in all limbs Skin: OTHER: Data 01/20/25 05:18 01/20/25 05:18 Micro: Microbiology 01/19/25 12:08 Blood Culture - Preliminary Blood NEGATIVE TO DATE 01/19/25 12:05 Blood Culture - Preliminary Blood NEGATIVE TO DATE 01/19/25 15:46 Urine Culture - Preliminary Urine,Clean Catch A&P Assessment and plan (1) Cellulitis of abdominal wall: (2) Morbid obesity: (3) Recurrent infection of skin: (4) Type 2 diabetes mellitus: (5) Failure of outpatient treatment: Plan 29-year-old young female, morbidly obese, type II diabetic not currently on medications presents to the ER with cellulitis of left lower abdominal wall after failure of outpatient Bactrim. Cellulitis abdominal wall: CT of the pelvis negative for abscess. MRSA swab positive. Follow-up blood culture. Appreciate A1c. Will consult wound care. Patient will most likely need to follow-up with wound care as an outpatient. Continue with IV vancomycin and Zosyn. Type 2 diabetes mellitus: Currently not on treatment. Uncontrolled type 2 diabetes mellitus. A1c of more than 12.9. Continue with insulin sliding scale. Depending on insulin requirement in next 24 hours we will add Lantus. Patient is agreeable to start insulin as an outpatient. Elevated blood pressure: No formal history of hypertension. Goal blood pressure less than 140/90 mmHg. Add losartan 50 mg oral daily. Full code Carb consistent diet Famotidine for PUD prophylaxis Heparin 5000 every 12 hourly for DVT prophylaxis. PDMP PDMP Reviewed: Not Reviewed Attestations 2 Medical Necessity Statement*: Requires further hospitalization for management of cellulitis of abdominal wall, uncontrolled type 2 diabetes mellitus in a morbidly obese female Diagnoses Cellulitis of abdominal wall L03.311 Morbid obesity E66.01 Recurrent infection of skin L08.9 Type 2 diabetes mellitus E11.9 Failure of outpatient treatment Z78.9
[2025-01-20] MEDS: losartan 50 mg Tablet PO (16:11)
[2025-01-20] MEDS: collagenase oint 30 gm 1 APPLIC TOPICAL (16:11)
[2025-01-20 16:59] LABS: Glucose Point of Care 261 mg/dL (70-110)
[2025-01-20 20:41] LABS: Glucose Point of Care 274 mg/dL (70-110)
[2025-01-21] MEDS: vancomycin 1,750 MG/350 ML PIGGYBACK 175 MG IV (00:54)
[2025-01-21 04:00] VITALS: BP 165/90; PULSE 88; RESP 17; TEMP 36.7; O2SAT 95
[2025-01-21] MEDS: heparin 5,000 unit/mL INJ 1 mL 5000 UNIT SUBCUT ×2 (04:27→12:59)
[2025-01-21] MEDS: piperacillin-tazobactam 3.375 GM in sodium chloride 0.9% (plus) 50 ML IV ×2 (04:27→13:00)
[2025-01-21 05:01] LABS: Basophils % 0.4 %; Eosinophils # 0.4 10^3/uL (0.0-0.8); Eosinophils % 5.3 %; Hematocrit 30.1 % (36-47); Lymphocytes # 1.5 10^3/uL (0.8-4.8); Lymphocytes % 21.6 %; Mean Corpuscular HGB Conc 31.6 g/dL (30-55); Mean Corpuscular Hemoglobin 26.5 pg (27-33); Mean Corpuscular Volume 83.8 fl (85-98); Monocytes # 0.5 10^3/uL (0.2-0.9); Nucleated Red Blood Cells % 0 %; Platelet Count 295 10^3/cmm (157-399); Red Blood Count 3.59 10^6/uL (3.85-5.65); Red Cell Distribution Width 12.6 % (12.1-15.1); White Blood Count 7.03 10^3/uL (3.29-11.43)
[2025-01-21 05:21] LABS: Alanine Aminotransferase 58 U/L (0-33); Albumin Level 2.5 g/dL (3.5-5.2); Alkaline Phosphatase 387 U/L (35-105); Anion Gap 19.2 (5-19); Aspartate Amino Transferase 45 U/L (0-32); Blood Urea Nitrogen 15 mg/dL (6-20); Calcium 8.3 mg/dL (8.5-10.5); Carbon Dioxide 20 mmol/L (22-29); Chloride 101 mmol/L (98-107); Creatinine Clr Calc Pharmacy 149.7449; Globulin 3.7 g/dL (1.3-4.6); Glomerular Filtration Rate 83.7 mL/min (90-130); Glucose 211 mg/dL (65-115); Magnesium 2.1 mg/dL (1.7-2.3); Osmolality Calculated 289 mOsm/kg (285-295); Phosphorus 4.4 mg/dL (2.5-4.5); Potassium 4.2 mmol/L (3.5-5.1); Sodium 136 mmol/L (136-145); Total Bilirubin 0.5 mg/dL (0.15-1.2); Total Protein 6.2 g/dL (6.6-8.7)
[2025-01-21 06:26] LABS: Glucose Point of Care 236 mg/dL (70-110)
[2025-01-21 07:52] VITALS: BP 186/81; PULSE 92; RESP 19; TEMP 36.7; O2SAT 96
[2025-01-21 08:06] VITALS: BP 186/81
[2025-01-21] MEDS: famotidine 20 mg Tablet PO (08:06)
[2025-01-21] MEDS: losartan 50 mg Tablet PO (08:06)
[2025-01-21] MEDS: insulin lispro 100 unit/1 mL SUBCUT ×2 (08:06→12:59)
[2025-01-21] MEDS: nystatin 100,000 unit/mL UDC 5 mL 200000 UNIT PO ×3 (08:07→16:56)
[2025-01-21 11:51] LABS: Glucose Point of Care 260 mg/dL (70-110)
[2025-01-21 12:03] VITALS: BP 168/96; PULSE 96; RESP 19; TEMP 36.8; O2SAT 96
[2025-01-21 12:38] LABS: Vancomycin Trough 17.7 ug/mL (10-15)
[2025-01-21] MEDS: collagenase oint 30 gm 1 APPLIC TOPICAL (15:00)
--- NOTE | 2025-01-21 15:08 | PM.DCS ---
Discharge Providers Date of Admission: 01/19/25 12:33 Date of Discharge: January 21, 2025 Attending Provider at Admission: Andrew Randhawa MD Attending Provider at Discharge: Andrew Randhawa MD Consults: Wound care Surgery: Dr. Davalos Primary Care Provider: MEHNAZ Stevens Diagnoses at Discharge Discharge Diagnosis (1) Cellulitis of abdominal wall: Status: Acute (2) Morbid obesity: Status: Acute (3) Recurrent infection of skin: Status: Acute (4) Type 2 diabetes mellitus: Status: Acute (5) Failure of outpatient treatment: Status: Acute Reason for Visit Reason for Visit: lower abdomen boil left side Hospital Course Hospital Course Cally Ray is a 29 year old female with past medical history of morbid obesity, type 2 diabetes mellitus not on medication currently as she did not like how metformin used to make her feel for last few years, recurrent boils on the skin presents to the ER today because of pain, discharge from her abdomen on the left lower side. Patient states she had a boil which burst open over a week ago and she was taking care of it by herself that she usually does but this started draining again and she started developing high-grade fever since Thursday which bothered her. She was started on Bactrim by her PCP. She states she has overall taken 3 tablets of Bactrim till now. As she continued to have high-grade fevers she presented to the ER. In the ER CT abdomen pelvis was negative for any abscess collection. On review of labs it seems her blood glucose on BMP was more than 400, sodium level is 132. Patient has been given 1 dose of IV vancomycin and cefepime so far in the ER. Patient was admitted to the hospital further evaluation and management of abdominal wall cellulitis with no concerns for abscess and failure to outpatient treatment. She was started on broad-spectrum IV antibiotics. She was found to be colonized with MRSA. During hospitalization she was found to have uncontrolled type 2 diabetes mellitus with A1c of more than 12. She was also found to have elevated blood pressures. She was seen by wound care and is to follow-up with wound care team as an outpatient. She has been discharged on hemodynamically stable condition on oral linezolid and Levaquin for next 7 days with advised to follow-up with wound care team as an outpatient. She is also being discharged on Lantus 15 units nightly along with Humalog premeals as per sliding scale. She is also to start losartan 50 mg oral daily. She is to check her blood pressures and blood sugar daily at home and maintain a diary. Goal blood pressures less than 140/90 mmHg. Goal fasting blood sugar is less than 120 and Premeal is less than 140. She is to follow-up with her primary care provider as an outpatient in next 2 weeks for further adjustment of antidiabetic and hypertensive medications. Physical Exam Narrative: General: No acute distress, AO x3 HEENT: PERRLA, pupils bilaterally equal and reactive Chest: Normal vesicular breath sounds, no added sounds, equal good air entry bilaterally CVS: S1-S2 regular, no murmurs, no tachycardia, no gallops, no rubs Abdomen: Soft, nontender, no organomegaly, bowel sounds present Neuro: No focal deficits, no facial deformity, AO x3, power 5/5 in all limbs Skin: OTHER: Discharge Data Studies Completed and Pending Completed Studies During Hospitalization Category Date Time Status CT abdomen pelvis w con* [id number] Stat Cat Scan 01/19/25 10:01 Completed Pending at discharge Category Date Time Status Blood Culture Stat Lab 01/19/25 12:08 Results Complete Blood Count w/Auto AM LABS Lab 01/22/25 04:00 Ordered Comprehensive Metabolic Panel AM LABS Lab 01/22/25 04:00 Ordered Magnesium AM LABS Lab 01/22/25 04:00 Ordered Phosphorus AM LABS Lab 01/22/25 04:00 Ordered Radiology Impressions Abdomen/Pelvis CT 01/19/25 10:01 IMPRESSION: 1. Focal cellulitis LEFT lower quadrant abdominal wall. No abscess. 2. Markedly enlarged liver with mild hepatic steatosis. 3. No GI tract obstruction. Microbiology 01/19/25 15:46 Urine,Clean Catch Urine Culture - Final 01/19/25 12:08 Blood Blood Culture - Preliminary NEGATIVE TO DATE 01/19/25 12:05 Blood Blood Culture - Preliminary NEGATIVE TO DATE Laboratory Results WBC 7.03 10^3/uL (3.29-11.43) 01/21/25 04:48 RBC 3.59 10^6/uL (3.85-5.65) L 01/21/25 04:48 Hgb 9.50 g/dL (11.27-16.99) L 01/21/25 04:48 Hct 30.1 % (36-47) L 01/21/25 04:48 MCV 83.8 fl (85-98) L 01/21/25 04:48 MCH 26.5 pg (27-33) L 01/21/25 04:48 MCHC 31.6 g/dL (30-55) 01/21/25 04:48 RDW 12.6 % (12.1-15.1) 01/21/25 04:48 Plt Count 295 10^3/cmm (157-399) 01/21/25 04:48 MPV 9.0 fL (7.4-10.4) 01/21/25 04:48 Neut % (Auto) 64.0 % 01/21/25 04:48 Lymph % (Auto) 21.6 % 01/21/25 04:48 [place] % (Auto) 7.0 % 01/21/25 04:48 Eos % (Auto) 5.3 % 01/21/25 04:48 Baso % (Auto) 0.4 % 01/21/25 04:48 Neut # (Auto) 4.50 10^3/uL (1.8-7.7) 01/21/25 04:48 Lymph # (Auto) 1.5 10^3/uL (0.8-4.8) 01/21/25 04:48 [place] # (Auto) 0.5 10^3/uL (0.2-0.9) 01/21/25 04:48 Eos # (Auto) 0.4 10^3/uL (0.0-0.8) 01/21/25 04:48 Baso # (Auto) 0.0 10^3/uL (0.0-0.1) 01/21/25 04:48 Nucleated RBC % (auto) 0 % 01/21/25 04:48 Nucleated RBCs # 0.0 /100WBC 01/21/25 04:48 ESR 87 mm/hr (0-15) H 01/19/25 10:17 Sodium 136 mmol/L (136-145) 01/21/25 04:48 Potassium 4.2 mmol/L (3.5-5.1) 01/21/25 04:48 Chloride 101 mmol/L (98-107) 01/21/25 04:48 Carbon Dioxide 20 mmol/L (22-29) L 01/21/25 04:48 Anion Gap 19.2 (5-19) H 01/21/25 04:48 BUN 15 mg/dL (6-20) 01/21/25 04:48 Creatinine 0.8 mg/dL (0.5-0.9) 01/21/25 04:48 GFR Calculation 83.7 mL/min (90-130) L 01/21/25 04:48 Glucose 211 mg/dL (65-115) H 01/21/25 04:48 POC Glucose 260 mg/dL (70-110) H 01/21/25 11:37 Estimat Average Glucose 324 01/19/25 10:17 Hemoglobin A1c 12.9 % (4.0-6.0) H 01/19/25 10:17 Calculated Osmolality 289 mOsm/kg (285-295) 01/21/25 04:48 Lactic Acid 1.6 mmol/L (0.5-2.2) 01/19/25 15:41 Calcium 8.3 mg/dL (8.5-10.5) L 01/21/25 04:48 Phosphorus 4.4 mg/dL (2.5-4.5) 01/21/25 04:48 Magnesium 2.1 mg/dL (1.7-2.3) 01/21/25 04:48 Iron 42 ug/dL (37-145) 01/19/25 10:17 TIBC 182 mcg/dl 01/19/25 10:17 % Saturation 23.0 % (20-50) 01/19/25 10:17 Unsat Iron Binding 140 ug/dL (112-347) 01/19/25 10:17 Total Bilirubin 0.5 mg/dL (0.15-1.2) 01/21/25 04:48 AST 45 U/L (0-32) H 01/21/25 04:48 ALT 58 U/L (0-33) H 01/21/25 04:48 Alkaline Phosphatase 387 U/L (35-105) H 01/21/25 04:48 C-Reactive Protein 202.3 mg/L (0.0-4.9) H 01/19/25 10:17 Total Protein 6.2 g/dL (6.6-8.7) L 01/21/25 04:48 Albumin 2.5 g/dL (3.5-5.2) L 01/21/25 04:48 Globulin 3.7 g/dL (1.3-4.6) 01/21/25 04:48 Triglycerides 307 mg/dL (0-150) H 01/20/25 05:18 Cholesterol 169 mg/dL (0-200) 01/20/25 05:18 LDL Cholesterol, Calc 91 mg/dL (50-129) 01/20/25 05:18 HDL Cholesterol 17 mg/dL (60-100) L 01/20/25 05:18 LDL/HDL Ratio 5.35 RATIO (0.00-3.22) H 01/20/25 05:18 Cholesterol/HDL Ratio 9.94 mg/dL (0.0-4.40) H 01/20/25 05:18 Vitamin B12 730 pg/mL (232-1245) 01/19/25 10:17 Folate 11.5 ng/mL (4.8-37.3) 01/20/25 05:18 Procalcitonin 1.26 ng/mL (0-0.5) H 01/20/25 05:18 TSH 1.74 uIU/mL (0.27-4.20) 01/19/25 10:17 HCG, Qual Negative (Negative) 01/19/25 10:17 Ser , Semi-Qnt < 1.00 mIU/mL 01/19/25 10:17 Urine Color Yellow (Yellow) 01/19/25 15:46 Urine Appearance Clear (CLEAR) 01/19/25 15:46 Urine pH 6.0 (5-7) 01/19/25 15:46 Ur Specific [place] 1.037 (1.005-1.030) H 01/19/25 15:46 Urine Protein 3+ (Negative) A 01/19/25 15:46 Urine Glucose (UA) 2+ (Normal) H 01/19/25 15:46 Urine Ketones Trace (Negative) 01/19/25 15:46 Urine Blood 3+ (Negative) A 01/19/25 15:46 Urine Nitrate Negative (Negative) 01/19/25 15:46 Urine Bilirubin Negative (Negative) 01/19/25 15:46 Urine Urobilinogen 1.0 mg/dL (Negative) 01/19/25 15:46 Ur Leukocyte Esterase Negative (Negative) 01/19/25 15:46 Urine RBC >100 /hpf (0-2) H 01/19/25 15:46 Urine WBC 0-5 /hpf (0-5) 01/19/25 15:46 Ur Squamous Epith Cells 0-5 /hpf (0-5) 01/19/25 15:46 Amorphous Sediment Not Reportable 01/19/25 15:46 Urine Bacteria None seen /hpf (NONE) 01/19/25 15:46 Hyaline Casts 0.40 /lpf 01/19/25 15:46 Nasal MRSA (PCR) Mrsa detected (Not Detecte) A 01/19/25 14:07 Vancomycin Trough 17.7 ug/mL (10-15) H 01/21/25 11:50 Serum Ketones Negative (Negative) 01/19/25 10:17 Vitals Last Vital Signs Temp 98.3 F 01/21/25 12:03 Pulse 96 01/21/25 12:03 Resp 19 H 01/21/25 12:03 BP 168/96 01/21/25 12:03 Pulse Ox 96 01/21/25 12:03 O2 Del Method CPAP 01/21/25 04:00 Discharge Plan Discharge Patient Disposition: Home Condition: Stable Prescriptions: New (DME) blood-glucose meter [Blood Glucose Monitoring] Kit See Rx Instructions .ROUTE .MEDSUPPLY Qty: 1 0RF Rx Instructions: As directed insulin lispro [Humalog KwikPen Insulin] 100 unit/mL insulin pen See Protocol SUBCUT QPM Qty: 15 0RF Protocol: Insulin Corrective High-Dose Regimen Condition: Fingerstick Blood Glucose Dose/Route: Insulin Units Condition: 141-180 mg/dl Dose/Route: 2 units/SQ Condition: 181-220 mg/dl Dose/Route: 4 units/SQ Condition: 221-260 mg/dl Dose/Route: 4 units/SQ Condition: 261-300 mg/dl Dose/Route: 8 units/SQ Condition: 301-350 mg/dl Dose/Route: 10 units/SQ Condition: 351-400 mg/dl Dose/Route: 12 units/SQ Condition: greater than 400 mg/dl Dose/Route: 14 units/SQ levofloxacin 750 mg tablet 750 mg PO Q24H 7 Days Qty: 7 0RF linezolid 600 mg tablet 600 mg PO BID 7 Days Qty: 14 0RF losartan 50 mg Tablet 50 mg PO DAILY 30 Days Qty: 30 0RF insulin glargine [Lantus Solostar U-100 Insulin] 100 unit/mL (3 mL) insulin pen 15 unit SUBCUT QPM Qty: 15 0RF Continued medroxyprogesterone 10 mg tablet 10 mg PO DAILY cranberry 500 mg Capsule 500 mg PO BID Rx Instructions: administer with meals cinnamon bark 500 mg Capsule 500 mg PO DAILY [place]-3 Fish Oil 300-1,000 mg Capsule 1 cap PO DAILY Discontinued sulfamethoxazole-trimethoprim [Bactrim DS] 800-160 mg tablet 1 tab PO BID 7 Days Qty: 14 0RF Discharge Orders: Discharge Order (Routine); Ordered 01/21/25 Ordered By: Andrew Randhawa Referrals: Agustin Mendoza FNP [Nurse Practitioner, Wound Care] - 01/24/25 9:15 am Referral Note: WITH DR. JOSHI-ARRIVE 15 MINUTES EARLY Lara Colin FNP [Primary Care Provider, [facility]] - 2 weeks Discharge Diet: Cardiac and Diabetic Discharge Activity: Resume usual activity and Increase activity as tolerated Patient Instructions: Opioid Safety, Patient Portal & Carolyne Instructions Activity Restrictions/Additional Instructions: Wound Orders Wound Number 1: Duration: 7 Days Dressing change frequency: Daily Wound Cleansing: Saline Primary Wound Care Dressing: Santyl(nickel thickness) Secondary Wound Care Dressing: Gauze, ABD pad, and tape Internal medicine discharge instruction She is to be on antibiotics as below. Take oral linezolid and Levaquin for next 7 days with advised to follow-up with wound care team as an outpatient. She is also being discharged on Lantus 15 units nightly along with Humalog premeals as per sliding scale. She is also to start losartan 50 mg oral daily. She is to check her blood pressures and blood sugar daily at home and maintain a diary. Goal blood pressures less than 140/90 mmHg. Goal fasting blood sugar is less than 120 and Premeal is less than 140. She is to follow-up with her primary care provider as an outpatient in next 2 weeks for further adjustment of antidiabetic and hypertensive medications. Discharge Attestations Time Spent in Discharge Care*: greater than 30 min Specific Discharge Activities: educating patient, educating and/or supporting family/caregiver, discussing with pcp/other providers, discussing with casework supervisor/social workers/dc planners, documenting/other paperwork and evaluating patient/reviewing data Status at Discharge: Cognitive status at discharge: cognitively intact, Behavioral status at discharge: cooperative, Functional status at discharge: independent ambulation, Overall status at discharge: patient is progressing back to baseline Quality Metrics Clinical Quality Measures [ No reported AMI, CVA or VTE this stay] Coding Level of Care Code 58455 Total time (in minutes) for Discharge: 65 Diagnoses Cellulitis of abdominal wall L03.311 Morbid obesity E66.01 Recurrent infection of skin L08.9 Type 2 diabetes mellitus E11.9 Failure of outpatient treatment Z78.9
[2025-01-21 16:12] VITALS: BP 165/86; PULSE 100; RESP 19; TEMP 36.7; O2SAT 94
[2025-01-21 16:15] VITALS: BP 165/86; PULSE 100; RESP 18; TEMP 37; O2SAT 98
[2025-01-21 16:38] LABS: Glucose Point of Care 250 mg/dL (70-110)
--- NOTE | 2025-01-21 16:51 | PC.NURSE ---
Patient discharged at this time. Updated her that Dr. Randhawa did send some nystatin to [facility] here for her. Patient is A&Ox3. Respirations even and non-labored on room air. Dressing was changed at 3:00 PM. Patient wheel chaired to a private car.
== END 2025-01-21 16:00 | disposition home or self-care (01) | DRG 603 ==
LOC: ER 12:21 → ER IP 12:34 → MEDSURG 18:16
PROVIDERS: Admitting Provider Student in an Organized Health Care Education/Training Program; Emergency Provider Emergency Medicine; PCP Nurse Practitioner Family; Visit Provider Student in an Organized Health Care Education/Training Program
DX: L03.311 Cellulitis of abdominal wall (principal); Z68.43 Body mass index [BMI] 50.0-59.9, adult; E66.01 Morbid (severe) obesity due to excess calories; E11.65 Type 2 diabetes mellitus with hyperglycemia; Z22.322 Carrier or suspected carrier of Methicillin resistant Staphylococcus aureus; Z79.4 Long term (current) use of insulin
CPT/HCPCS: 36415; 36416; 74177; 80053; 80061; 80202; 81001; 82009; 82607; 82746; 82962; 83036; 83540; 83550; 83605; 83735; 84100; 84145; 84443; 84702; 84703; 85025; 85651; 86140; 87040; 87070; 87077; 87086; 87184; 94664; 96365; 96366; 96372; 96375; 99285; J0692; J1644; J1815; J2543; J3372; J7030; J9999

== ENCOUNTER → 2025-02-01 08:50 | Outpatient (BNVA) | payer BC, SELFPAY | PROVIDERS: PCP Nurse Practitioner Family; Visit Provider Thoracic Surgery (Cardiothoracic Vascular Surgery) | DX: L03.311 Cellulitis of abdominal wall (principal); L02.211 Cutaneous abscess of abdominal wall | CPT/HCPCS: 87070; 87077; 87186 ==